=== PATIENT | male | born 1940 | race Caucasian/White ===

== ENCOUNTER 2017-01-11 10:32 | Outpatient (CLI) | payer MEDICARE, OTHER ==
--- NOTE | 2017-01-11 17:07 | XRAY Report ---
RIGHT SHOULDER THREE VIEWS: 01/11/2017 CLINICAL HISTORY: Pain. COMPARISON: None. FINDINGS: Degenerative change right acromioclavicular articulation with spurring and narrowing. Mild degenerative change of glenohumeral articulation with spurring. Soft tissue calcification adjacent t o the greater tuberosity. Anatomic alignment of the glenohumeral and acromioclavicular joints. The in cluded right lung is unremarkable. IMPRESSION: DEGENERATIVE CHANGE AND CALCIFIC TENDINITIS RIGHT SHOULDER. JOB #: [id number] EXT JOB #:[id number]
== END 2017-01-11 10:33 | disposition home or self-care (01) ==
LOC: DI.S 10:32
PROVIDERS: ATTEND Family Medicine
DX: M19.011 Primary osteoarthritis, right shoulder (principal); M75.31 Calcific tendinitis of right shoulder

== ENCOUNTER 2018-05-04 15:28 | Outpatient (CLI) | payer MEDICARE, OTHER ==
--- NOTE | 2018-05-06 01:02 | XRAY Report ---
Reason: ACUTE BRONCHITIS,UNSPECIFIED Procedure Date: 05/04/2018 Accession Number: [id number] / [id number] Procedure: XR - Chest 2 View X-Ray CPT Code: 98105 FULL RESULT: EXAM: CHEST RADIOGRAPHY EXAM DATE: 05/04/2018 03:49 PM. CLINICAL HISTORY: ACUTE BRONCHITIS,UNSPECIFIED. COMPARISON: SHOULDER 3 VIEW RT 01/11/2017 10:45 AM 09/22/2014 3:29 PM. TECHNIQUE: 2 views. FINDINGS: Lungs/Pleura: Stable interstitial prominence. Scattered nodular opacities bilaterally, new from previous. Consider chest CT to exclude an underlying pulmonary nodule. No effusion or pneumothorax. Mediastinum: Heart and mediastinal contours are unremarkable. Other: None. IMPRESSION: Stable interstitial prominence. New scattered bilateral nodular opacities. Consider chest CT for further evaluation. RADIA
== END 2018-05-04 15:29 | disposition home or self-care (01) ==
LOC: DI 15:28
PROVIDERS: ATTEND Family Medicine
DX: J20.9 Acute bronchitis, unspecified (principal); R91.8 Other nonspecific abnormal finding of lung field
CPT/HCPCS: 71046

== ENCOUNTER 2018-05-22 10:49 | Outpatient (CLI) | payer MEDICARE, OTHER ==
--- NOTE | 2018-05-22 12:09 | CT Report ---
Reason: OTHER NONSPECIFIC ABNORMAL FINDING OF LUNG FIELD Procedure Date: 05/22/2018 Accession Number: [id number] / [id number] Procedure: CT - Chest W/O CPT Code: FULL RESULT: EXAM: CT CHEST EXAM DATE: 05/22/2018 11:01 AM. CLINICAL HISTORY: Other nonspecific abnormal finding of lung field. COMPARISONS: Chest 2 view 05/04/2018 3:44 PM. TECHNIQUE: Routine helical CT imaging was performed through the chest. IV contrast: None. Reconstructions: Coronal and sagittal. In accordance with CT protocol optimization, one or more of the following dose reduction techniques were utilized for this exam: automated exposure control, adjustment of mA and/or KV based on patient size, or use of iterative reconstructive technique. FINDINGS: Lungs/Pleura: There is peripheral interstitial thickening with lower lobe predominance and scarring mostly at the lung bases where traction bronchiectasis is observed peripherally. A few scattered nodules measuring 4 mm or less are seen, for example image 18 series 4 in the right upper lobe. There is a triangular 0.7 x 0.6 cm nodule along the horizontal fissure on image 20 series 6/image 28 series 4. Similarly, a pleural-based perifissural stellate nodule in the left lower lobe is seen on image 34 series 6, 1.3 x 0.7 cm. No pleural calcifications, pleural effusion or pneumothorax. Mediastinum: Extensive coronary calcifications. No adenopathy or masses. The heart and great vessels are unremarkable with the exception of mild aortic calcifications. Bones: Unremarkable. Visualized Abdomen: Right lobe of liver cyst is noted. Other: None. IMPRESSION: Nodularities and increased interstitial markings seen on chest radiograph are identified as lower lobe predominant early fibrotic process with nodularities predominately in perifissural/peripleural locations as described. Recommendation: Pulmonology consult. RADIA
== END 2018-05-22 10:50 | disposition home or self-care (01) ==
LOC: DI 10:49
PROVIDERS: ATTEND Family Medicine
DX: R91.8 Other nonspecific abnormal finding of lung field (principal); J47.9 Bronchiectasis, uncomplicated
CPT/HCPCS: 71250

== ENCOUNTER 2019-05-16 13:57 | Outpatient (CLI) | payer MEDICARE, OTHER ==
[2019-05-16 18:45] LABS: ALBUMIN/GLOBULIN RATIO 1.1 (1.0-2.2); BILIRUBIN,TOTAL 0.6 mg/dL (0.2-1.0); CALCIUM 9.1 mg/dL (8.5-10.3); CREATININE 0.9 mg/dL (0.6-1.2); CRP - C-REACTIVE PROTEIN 2.2 mg/dL (0-1.0); TOTAL PROTEIN 7.6 g/dL (6.7-8.2)
[2019-05-18 11:28] LABS: ANA SCREEN NEGATIVE (NEGATIVE)
== END 2019-05-16 13:58 | disposition home or self-care (01) ==
LOC: LAB.S 13:57
PROVIDERS: ATTEND Nurse Practitioner Family
DX: M25.559 Pain in unspecified hip (principal)
CPT/HCPCS: 36415; 80053; 85651; 86038; 86140

== ENCOUNTER 2022-09-30 08:00 | Outpatient (CLI) | payer MEDICARE, OTHER ==
--- NOTE | 2022-09-30 15:54 | XRAY Report ---
PROCEDURE: Chest 2 View X-Ray INDICATIONS: PNEUMONIA TECHNIQUE: 2 views of the chest were acquired. COMPARISON: 05/22/2018 and 05/04/2018.. FINDINGS: Surgical changes and devices: None. Lungs and pleura: Ill-defined airspace opacities are noted in right lower lung field suggestive of sm all right lower lobe infiltrate. Chronic emphysematous changes are seen. Blunting of right costophren ic angle is noted suggestive of small right pleural effusion. No pneumothorax. Mediastinum: Mediastinal contours appear normal. Heart size is enlarged. Bones and chest wall: No suspicious bony lesions. Overlying soft tissues appear unremarkable. IMPRESSION: Finding is suggestive of small infiltrate in lateral right lower lobe near right lung base. Small rig ht pleural effusion. COPD. No pneumothorax. Reviewed by: Waldo Lenz MD on 09/30/2022 3:52 PM PDT Approved by: Waldo Lenz MD on 09/30/2022 3:52 PM PDT Station ID: [id number]
== END 2022-09-30 23:59 | disposition home or self-care (01) ==
LOC: DI.S 08:00
PROVIDERS: ATTEND Emergency Medicine
DX: J18.9 Pneumonia, unspecified organism (principal); J90 Pleural effusion, not elsewhere classified; J44.0 Chronic obstructive pulmonary disease with (acute) lower respiratory infection

== ENCOUNTER 2022-09-30 20:38 | Inpatient (IN) | payer MEDICARE, OTHER ==
--- NOTE | 2022-09-30 21:03 | ED Physician Documentation ---
History of Present Illness - Stated complaint Stated Complaint: SOA - Chief complaint Chief Complaint: Resp - Additonal information Additional information: Patient is 81-year-old male with past medical significant for pulmonary fibrosis presenting to the emergency department with 5-day history cough, fever, shortness of breath. Accompanied by who is present at bedside. Reports initially started with fever 101.2 at home 5 days ago. Reports a history of chronic cough that has been becoming progressively worse for the last 5 days. He does state that he followed with pulmonology prior to the onset of the COVID- 19 pandemic at the [facility] however has not followed up with a auto parts professional in some time. Denies any history COPD, regular use of breathing treatments, or baseline oxygen demand. Reports had some mild chest pain yesterday but denies any chest pain at this time. Otherwise denies for any nausea, vomiting, abdominal pain, diarrhea, constipation, new rash, new weakness/numbness/tingling in any extremity. Review of Systems Constitutional: reports: Fever Eyes: denies: Loss of vision Ears: denies: Loss of hearing Nose: denies: Rhinorrhea / runny nose Throat: denies: Dental pain / toothache Cardiac: reports: Chest pain / pressure Respiratory: reports: Dyspnea, Cough GI: denies: Abdominal Pain, Nausea, Constipation, Diarrhea : denies: Dysuria Skin: denies: Rash Musculoskeletal: denies: Neck pain Neurologic: denies: Generalized weakness PD PAST MEDICAL HISTORY - Past Surgical History Past Surgical History: Yes HEENT: Tonsil/Adenoidectomy - Present Medications Home Medications: Ambulatory Orders Medication Instructions Recorded Confirmed predniSONE [Prednisone] 15 mg PO DAILY 02/20/15 02/20/15 - Allergies Allergies/Adverse Reactions: Allergies Allergy/AdvReac Type Severity Reaction Status Date / Time No Known Drug Allergies Allergy Verified 09/30/22 20:51 - Social History Does the pt smoke?: No Smoking Status: Never smoker Does the pt drink ETOH?: Yes Does the pt have substance abuse?: No - Immunizations Immunizations are current?: No Immunizations: TDAP >10years/unknown PD ED PE NORMAL - General General: Alert and oriented X 3, No acute distress - HEENT HEENT: Atraumatic - Neck Neck: Supple, no meningeal sign, No JVD - Cardiac Cardiac: RRR, No murmur, No gallop - Respiratory Respiratory: Clear bilaterally - Abdomen Abdomen: Normal bowel sounds, Soft, Non tender, Non distended - Male Male : Deferred - Rectal Rectal: Deferred - Back Back: No CVA TTP - Derm Derm: Normal color - Extremities Extremities: No deformity - Neuro Neuro: Alert and oriented X 3, waist presser 2-12 intact, No motor deficit, No sensory deficit, Normal speech - Psych Psych: Normal mood Results - Vitals Vitals: Vital Signs - 24 hr 09/30/22 09/30/22 09/30/22 20:48 21:21 22:00 Temperature 37.7 C 37.4 C Heart Rate 100 97 95 Respiratory 22 26 H 26 H Rate Blood Pressure 155/82 H 149/82 H 142/84 H O2 Saturation 86 L 93 93 If not protocol 2 2 : Oxygen Flow, liters/minute 09/30/22 22:30 Temperature Heart Rate 93 Respiratory 28 H Rate Blood Pressure 138/82 H O2 Saturation 95 If not protocol 2 : Oxygen Flow, liters/minute Oxygen O2 Source Nasal cannula - EKG (time done) 2050 EKG releavant findings:: EKG personally interpreted by author of this note. Relevant findings are: Sinus rhythm with rate 98 bpm. Normal axis. Prolonged ME interval. Normal QRS and QTc intervals. Nonspecific ST and T wave abnormalities throughout. Moderate motion artifact throughout. - Labs Labs: Laboratory Tests 09/30/22 09/30/22 09/30/22 20:48 21:00 21:00 WBC 17.3 H RBC 4.08 L Hgb 12.3 L Hct 36.3 L MCV 89.0 MCH 30.1 MCHC 33.9 RDW 14.6 Plt Count 180 MPV 12.8 H Neut # (Auto) Not Reportable Lymph # (Auto) Not Reportable [place] # (Auto) Not Reportable Eos # (Auto) Not Reportable Baso # (Auto) Not Reportable Absolute Nucleated RBC Not Reportable Total Counted 100 Band Neuts % (Manual) 0 Abnorm Lymph % (Manual) 0 Nucleated RBC % Not Reportable Neutrophils # (Manual) 13.8 H Lymphocytes # (Manual) 1.0 L Monocytes # (Manual) 2.4 H Eosinophils # (Manual) 0.0 Basophils # (Manual) 0.0 Differential Comment MANUAL DIFFERENTIAL Platelet Estimate NORMAL (130-450,000) Platelet Morphology NORMAL APPEARANCE RBC Morph Micro Appear NORMAL APPEARANCE Sodium 134 L Potassium 4.0 Chloride 102 Carbon Dioxide 20 L Anion Gap 12.0 BUN 23 H Creatinine 1.4 H Estimated GFR (MDRD) 49 L Glucose 143 H Lactic Acid 0.9 Calcium 8.3 L Total Bilirubin 1.0 AST 21 ALT 19 Alkaline Phosphatase 55 Total Protein 7.6 Albumin 3.3 Globulin 4.3 H Albumin/Globulin Ratio 0.8 L Nasal Adenovirus (PCR) Nasal B. parapertussis DNA (PCR) Nasal Coronavir 229E PCR Nasal Coronavir HKU1 PCR Nasal Coronavir NL63 PCR Nasal Coronavir OC43 PCR Nasal Enterovir/Rhinovir PCR Nasal Influenza B PCR Nasal Influenza A PCR Nasal Parainfluen 1 PCR Nasal Parainfluen 2 PCR Nasal Parainfluen 3 PCR Nasal Parainfluen 4 PCR Nasal RSV (PCR) Nasal B.pertussis DNA PCR Nasal C.pneumoniae (PCR) Jose Rafael Human Metapneumo PCR Nasal M.pneumoniae (PCR) Nasal SARS-CoV-2 (PCR) 09/30/22 21:00 WBC RBC Hgb Hct MCV MCH MCHC RDW Plt Count MPV Neut # (Auto) Lymph # (Auto) [place] # (Auto) Eos # (Auto) Baso # (Auto) Absolute Nucleated RBC Total Counted Band Neuts % (Manual) Abnorm Lymph % (Manual) Nucleated RBC % Neutrophils # (Manual) Lymphocytes # (Manual) Monocytes # (Manual) Eosinophils # (Manual) Basophils # (Manual) Differential Comment Platelet Estimate Platelet Morphology RBC Morph Micro Appear Sodium Potassium Chloride Carbon Dioxide Anion Gap BUN Creatinine Estimated GFR (MDRD) Glucose Lactic Acid Calcium Total Bilirubin AST ALT Alkaline Phosphatase Total Protein Albumin Globulin Albumin/Globulin Ratio Nasal Adenovirus (PCR) NOT DETECTED Nasal B. parapertussis DNA (PCR) NOT DETECTED Nasal Coronavir 229E PCR NOT DETECTED Nasal Coronavir HKU1 PCR NOT DETECTED Nasal Coronavir NL63 PCR NOT DETECTED Nasal Coronavir OC43 PCR NOT DETECTED Nasal Enterovir/Rhinovir PCR NOT DETECTED Nasal Influenza B PCR NOT DETECTED Nasal Influenza A PCR NOT DETECTED Nasal Parainfluen 1 PCR NOT DETECTED Nasal Parainfluen 2 PCR NOT DETECTED Nasal Parainfluen 3 PCR NOT DETECTED Nasal Parainfluen 4 PCR NOT DETECTED Nasal RSV (PCR) NOT DETECTED Nasal B.pertussis DNA PCR NOT DETECTED Nasal C.pneumoniae (PCR) NOT DETECTED Jose Rafael Human Metapneumo PCR NOT DETECTED Nasal M.pneumoniae (PCR) NOT DETECTED Nasal SARS-CoV-2 (PCR) NOT DETECTED PD Medical Decision Making - ED course Complexity details: reviewed results, re-evaluated patient, d/w patient, d/w family ED course: Patient is 81-year-old male presenting to the emergency department with 5 days history cough, congestion, shortness of breath and fever. Earlier today seen at primary care and had x-ray done which demonstrated Impression: Finding is suggestive of a small infiltrate in the lateral right lower lobe near the lung base. Small right pleural effusion. COPD. No pneumothorax. On arrival here to the emergency department he has clear aeration in all lung childers without wheeze or bronchospasm. Labs demonstrate significant leukocytosis. He also has a mild elevation in creatinine without previous for comparison however this would be consistent with a mild acute kidney injury. He is given IV hydration and started on Rocephin and Azithromycinfor community- acquired pneumonia. He remains dependent on 2 L O2 to maintain oxygen saturations of greater than 90% in the emergency department. Given that he has clear need for hospitalization his care was discussed with the telehospitalist service who graciously agreed to hospitalize at this time for further evaluation and treatment. Departure - Departure Disposition: 66 [facility] DC/Xfer Clinical Impression: PNA (pneumonia), Respiratory failure
[2022-09-30] MEDS ORDERED: AZITHROMYCIN INJ 500 MG in SODIUM CHLORIDE 0.9% 250 ML IV STA (21:06)
[2022-09-30] MEDS ORDERED: cefTRIAXone 1 GM in SODIUM CHLORIDE 0.9% MINIBAG 100 ML IV STA (21:06)
[2022-09-30] MEDS ORDERED: cefTRIAXone 1 GM VIAL ONE (21:22)
[2022-09-30 21:31] LABS: BASOPHILS % (AUTO) 0.3 %; EOSINOPHILS % (AUTO) 0.2 %; HCT - HEMATOCRIT 36.3 % (42.0-52.0); HGB - HEMOGLOBIN 12.3 g/dL (14.0-18.0); LYMPHOCYTES % (AUTO) 8.5 %; MEAN CORPUSCULAR HEMOGLOBIN 30.1 pg (27.0-31.0); MEAN CORPUSCULAR HGB CONC 33.9 g/dL (32.0-36.0); MEAN PLATELET VOLUME 12.8 fL (7.4-11.4); MONOCYTES % (AUTO) 15.8 %; NEUTROPHILS % (AUTO) 74.7 %; PLT - PLATELET COUNT 180 10^3/uL (130-450); RED BLOOD COUNT 4.08 10^6/uL (4.70-6.10); RED CELL DISTRIBUTION WIDTH 14.6 % (12.0-15.0); WHITE BLOOD COUNT 17.3 x10^3/uL (4.8-10.8)
[2022-09-30 21:35] LABS: ALBUMIN 3.3 g/dL (3.2-5.5); ALBUMIN/GLOBULIN RATIO 0.8 (1.0-2.2); CALCIUM 8.3 mg/dL (8.5-10.3); CREATININE 1.4 mg/dL (0.6-1.2); TOTAL PROTEIN 7.6 g/dL (6.7-8.2)
[2022-09-30 21:37] LABS: ABNORMAL LYMPHS % (MANUAL) 0 %; BAND NEUTROPHILS % (MANUAL) 0 %
--- OUTSIDE RECORDS SUMMARY | 2022-09-30 21:38 | EXTERNAL MEDICAL SUMMARY RPT | Continuity of Care Document ---
Author Name Unknown Address [address] [place] [address] Phone Organization [facility] Address [address] [place] [address] Phone Care Team Providers Care Head Buyer Tobacco Name Role Phone Unavailable Unavailable Unavailable Ricardo Plasencia Md Unavailable Unavailable Medications date description facility 2022-09-30 00:00 codeine-guaifenesin [facility] 2022-09-30 00:00 doxycycline hyclate [facility] 2022-09-30 00:00 famotidine [facility] 2022-09-30 00:00 azithromycin [facility] 2022-09-30 00:00 doxycycline hyclate [facility] 2022-09-30 00:00 codeine-guaifenesin [facility] 2022-09-30 00:00 doxycycline hyclate [facility] 2022-09-30 00:00 famotidine [facility] 2022-09-30 00:00 azithromycin [facility] 2022-09-30 00:00 famotidine [facility] 2022-09-30 00:00 codeine-guaifenesin [facility] 2022-09-30 00:00 albuterol sulfate [facility] 2022-09-30 00:00 albuterol sulfate [facility] 2022-09-30 00:00 famotidine [facility] 2022-09-30 00:00 azithromycin [facility] [place] 2022-09-30 00:00 azithromycin [facility] [place] 2022-09-30 00:00 ALBUTEROL SULFATE [facility] [place] 2022-09-30 00:00 albuterol sulfate [facility] [place] 2022-09-30 00:00 doxycycline hyclate [facility] [place] 2022-09-30 00:00 albuterol sulfate [facility] [place] 2022-09-30 00:00 codeine-guaifenesin [facility] [place] 2022-09-30 00:00 inhalational spacing device [facility] [place] Problems date description facility 2022-09-30 00:00 Community acquired pneumonia [facility] [place] 2022-09-30 00:00 Pneumonia, unspecified organism [facility] [place] Procedures date description facility 2022-09-30 00:00 Visit Code Hold [facility] [place] 2022-09-30 00:00 Albuterol 0.083% 2.5mg/3ml [facility] [place] Social History date description facility 2022-09-30 00:00 Never smoker [facility] [place] Vital Signs date measurement value units 2022-09-30 00:00 BMI 25.11 kg/m2 2022-09-30 00:00 BP_diastolic 72 mmHg 2022-09-30 00:00 BP_systolic 117 mmHg 2022-09-30 00:00 heart_rate 100 /min 2022-09-30 00:00 height_metric 167.64 cm 2022-09-30 00:00 height_standard 66 in 2022-09-30 00:00 respiration_rate 18 /min 2022-09-30 00:00 temperature_metric 36.89 C 2022-09-30 00:00 temperature_standard 98.4 F 2022-09-30 00:00 weight_metric 70.31 kg 2022-09-30 00:00 weight_standard 155 lb
[2022-09-30 21:55] LABS: LYMPHOCYTES % (MANUAL) 6 %; MONOCYTES # (MANUAL) 2.4 10^3/uL (0.0-1.0); NEUTROPHILS # (MANUAL) 13.8 10^3/uL (1.5-6.6)
[2022-09-30 21:56] LABS: CORONAVIRUS 229E-RESP PCR NOT DETECTED; CORONAVIRUS HKU1-RESP PCR NOT DETECTED; CORONAVIRUS NL63-RESP PCR NOT DETECTED; CORONAVIRUS OC43-RESP PCR NOT DETECTED; HUMAN METAPNEUMOVIRUS NOT DETECTED; INFLUENZA A- RESP PCR PANEL NOT DETECTED; RHINOVIRUS/ENTEROVIRUS NOT DETECTED; SARS-CoV-2 -RESP PCR PANEL NOT DETECTED
[2022-09-30 21:56] LABS: DIFFERENTIAL COMMENT MANUAL DIFFERENTIAL; PLATELET ESTIMATE, MANUAL NORMAL (130-450,000) (NORMAL); PLATELET MORPHOLOGY NORMAL APPEARANCE (NORMAL); RBC MORPHOLOGY (MULTIPLE) NORMAL APPEARANCE (NORMAL)
[2022-09-30 21:57] LABS: B. PARAPERTUSSIS- RESP PCR PAN NOT DETECTED; B. PERTUSSIS- RESP PCR PANEL NOT DETECTED; C. PNEUMONIAE- RESP PCR PANEL NOT DETECTED; INFLUENZA B - RESP PCR PANEL NOT DETECTED; M. PNEUMONIAE- RESP PCR PANEL NOT DETECTED; PARAINFLUENZA VIRUS 1 NOT DETECTED; PARAINFLUENZA VIRUS 2 NOT DETECTED; PARAINFLUENZA VIRUS 3 NOT DETECTED; PARAINFLUENZA VIRUS 4 NOT DETECTED; RSV- RESP PCR PANEL NOT DETECTED
[2022-09-30 23:15] LABS: BILIRUBIN,URINE NEGATIVE (NEGATIVE); GLUCOSE, URINE (UA) NEGATIVE (NEGATIVE); KETONES,URINE (UA) TRACE mg/dL (NEGATIVE); LEUKOCYTE ESTERASE, URINE NEGATIVE (NEGATIVE); NITRITE,URINE NEGATIVE (NEGATIVE); OCCULT BLOOD,URINE NEGATIVE (NEGATIVE); PH,URINE 5.5 PH (5.0-7.5); PROTEIN,URINE 30 mg/dL (NEGATIVE); UROBILINOGEN,URINE 1 (NORMAL) E.U./dL (NORMAL)
[2022-09-30 23:24] LABS: BACTERIA,URINE Rare /HPF (None Seen); CLARITY,URINE CLEAR (CLEAR); MUCUS,URINE Few Strands; RBC,URINE 0-5 /HPF (0-5); SQUAMOUS EPITHELIAL CELL,UR RARE Squamous (<= Few); WBC,URINE 0-3 /HPF (0-3)
[2022-10-01] MEDS ORDERED: oxyCODONE 5 MG TABLET PO PRN (00:17)
[2022-10-01] MEDS ORDERED: ZOLPIDEM 5 MG TABLET PO PRN (00:17)
[2022-10-01] MEDS ORDERED: ONDANSETRON 4 MG/2 ML VIAL IVP PRN (00:17)
[2022-10-01] MEDS ORDERED: ACETAMINOPHEN 325 MG TABLET PO PRN (00:17)
[2022-10-01] MEDS ORDERED: guaiFENesin 100 MG/5 ML UDC PO STA (00:20)
[2022-10-01] MEDS ORDERED: predniSONE 20 MG TABLET PO STA (00:23)
--- NOTE | 2022-10-01 00:28 | HISTORY & PHYSICAL EXAMINATION ---
Chief Complaint - Chief Complaint Chief Complaint: Worsening cough and sob History of Present Illness - Admitted From Admitted From:: Home - History Obtained From Records Reviewed: Yes History obtained from: Patient and ER Team Exam Limitations: None - History of Present Illness HPI Comment/Other: Patient is 81-year-old male with past medical significant for pulmonary fibrosis presenting to the emergency department with 5-day history cough, fever, shortness of breath. Accompanied by who is present at bedside. Reports initially started with fever 101.2 at home 5 days ago. Reports a history of chronic cough that has been becoming progressively worse for the last 5 days. He does state that he followed with pulmonology prior to the onset of the COVID- 19 pandemic at the [facility] however has not followed up with a brush finisher in some time. Denies any history COPD, regular use of breathing treatments, or baseline oxygen demand. Reports had some mild chest pain yesterday but denies any chest pain at this time. Otherwise denies for any nausea, vomiting, abdominal pain, diarrhea, constipation, new rash, new weakness/numbness/tingling in any extremity. 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 He did look comfortable History - Past Medical History MRSA Hx?: No - Past Surgical History HEENT: reports: Tonsil/Adenoidectomy Meds/Allgy - Home Medications Home Medications: Ambulatory Orders Medication Instructions Recorded Confirmed predniSONE [Prednisone] 15 mg PO DAILY 02/20/15 02/20/15 - Allergies Allergies/Adverse Reactions: Allergies Allergy/AdvReac Type Severity Reaction Status Date / Time No Known Drug Allergies Allergy Verified 09/30/22 20:51 Review of Systems - Respiratory Respiratory: reports: Cough, Sputum production, SOB with exertion Prior Level of Functionality: Independent with ADL Exam - Vital Signs Vital Signs: Vital Signs x48h Temp Pulse Resp BP Pulse Ox O2 Flow Rate 09/30/22 23:30 89 27 H 129/78 92 2 09/30/22 23:15 94 2 09/30/22 23:00 87 L 09/30/22 22:30 93 28 H 138/82 H 95 2 09/30/22 22:00 37.4 C 95 26 H 142/84 H 93 2 09/30/22 21:21 97 26 H 149/82 H 93 2 09/30/22 20:48 37.7 C 100 22 155/82 H 86 L - Physical Exam General Appearance: positive: No acute distress, Alert Eyes Bilateral: positive: Normal inspection, PERRL ENT: positive: ENT inspection nml Neck: positive: Nml inspection, Thyroid nml Respiratory: positive: Chest non-tender, No respiratory distress, Rhonchi Cardiovascular: positive: Regular rate & rhythm Abdomen: positive: Non-tender, No organomegaly Back: positive: Nml inspection Skin: positive: Color nml, No rash Extremities: positive: Non-tender, Full ROM Neurologic/Psychiatric: positive: Oriented x3, CN's nml (2-12) Sepsis Event Note (H) - Evaluation Current Stage of Sepsis: Ruled out Conclusion/Plan - Problem List (1) PNA (pneumonia) Conclusion/Plan: Admit to Med surg Treat for CAP IV Rocephin and Zithromax Sputum Cand S duonebs Prednisone Repeat Labs in am SCD Early dc anticipated if continues to improve Patient was informed that we are both in different location and I was providing him service on telemedicine He agreed to our encounter He understands he will be followed by my colleagues starting tomorrow am and they will be seeing him in person Qualifiers: Pneumonia type: due to unspecified organism Laterality: right Lung location: unspecified part of lung Qualified Code(s): J18.9 - Pneumonia, unspecified organism - Lab Results Fish Bones: 09/30/22 20:48 09/30/22 21:00
[2022-10-01] MEDS ORDERED: SODIUM CHLORIDE 0.9% 1,000 ML IV SCH (01:00)
[2022-10-01] MEDS: SODIUM CHLORIDE FLUSH 0.9% 10 ML SYRINGE IVP SCH ×4 (01:19→23:38)
[2022-10-01] MEDS ORDERED: IPRATROPIUM/ALBUTEROL 3 ML NEB INH SCH (06:00)
[2022-10-01 08:46] LABS: BASOPHILS % (AUTO) 0.2 %; HGB - HEMOGLOBIN 12.6 g/dL (14.0-18.0); LYMPHOCYTES # (AUTO) 0.7 10^3/uL (1.5-3.5); LYMPHOCYTES % (AUTO) 5.6 %; MEAN CORPUSCULAR HEMOGLOBIN 29.9 pg (27.0-31.0); MEAN CORPUSCULAR HGB CONC 34.1 g/dL (32.0-36.0); MEAN CORPUSCULAR VOLUME 87.7 fL (80.0-94.0); MEAN PLATELET VOLUME 9.8 fL (7.4-11.4); MONOCYTES # (AUTO) 0.6 10^3/uL (0.0-1.0); MONOCYTES % (AUTO) 4.4 %; NEUTROPHILS # (AUTO) 11.7 10^3/uL (1.5-6.6); NEUTROPHILS % (AUTO) 89.2 %; PLT - PLATELET COUNT 360 10^3/uL (130-450); RED BLOOD COUNT 4.22 10^6/uL (4.70-6.10); RED CELL DISTRIBUTION WIDTH 14.6 % (12.0-15.0); WHITE BLOOD COUNT 13.1 x10^3/uL (4.8-10.8)
[2022-10-01 08:55] LABS: BUN - BLOOD UREA NITROGEN 22 mg/dL (6-20); CALCIUM 8.5 mg/dL (8.5-10.3); CARBON DIOXIDE - CO2 20 mmol/L (21-32); CHLORIDE 107 mmol/L (101-111); CREATININE 1.3 mg/dL (0.6-1.2); GFR - MDRD 53 (>89); GLUCOSE 147 mg/dL (70-100); IONIZED CALCIUM IF INDICATED NO; SODIUM 138 mmol/L (135-145)
[2022-10-01] MEDS: guaiFENesin 600 MG TABLET PO SCH ×2 (09:05→20:38)
--- NOTE | 2022-10-01 12:21 | PHARMACY PROGRESS NOTE ---
- Best Possible Medication History Admit Date and Time: 10/01/22 0017 Processed by: Pharmacy Medication History completed: Yes Patient Interview: Completed Secondary Source(s): Pharmacy records, Insurance records As the person ultimately responsible for medication therapy, providers are able to order a medication from an existing home medication list in [facility] via the "Reconcile Routine" prior to Confirmation of that medication by end user support specialist. Such practice is discouraged except when the physician, in their clinical judgment, deems that a medical need exists for a medication without regard to previous use.
[2022-10-01] MEDS: cefTRIAXone 1 GM in SODIUM CHLORIDE 0.9% MINIBAG 100 ML IV SCH (20:38)
[2022-10-01] MEDS ORDERED: AZITHROMYCIN INJ 500 MG in SODIUM CHLORIDE 0.9% 250 ML IV SCH (21:00)
[2022-10-02 05:11] LABS: BASOPHILS % (AUTO) 0.2 %; EOSINOPHILS % (AUTO) 0.2 %; HGB - HEMOGLOBIN 12.9 g/dL (14.0-18.0); LYMPHOCYTES % (AUTO) 9.5 %; MEAN CORPUSCULAR HEMOGLOBIN 29.9 pg (27.0-31.0); MEAN CORPUSCULAR HGB CONC 33.9 g/dL (32.0-36.0); MEAN PLATELET VOLUME 11.5 fL (7.4-11.4); NEUTROPHILS % (AUTO) 76.5 %; PLT - PLATELET COUNT 325 10^3/uL (130-450); RED BLOOD COUNT 4.32 10^6/uL (4.70-6.10); RED CELL DISTRIBUTION WIDTH 14.6 % (12.0-15.0); WHITE BLOOD COUNT 16.2 x10^3/uL (4.8-10.8)
[2022-10-02 05:21] LABS: BUN - BLOOD UREA NITROGEN 27 mg/dL (6-20); CALCIUM 8.7 mg/dL (8.5-10.3); CARBON DIOXIDE - CO2 22 mmol/L (21-32); CHLORIDE 108 mmol/L (101-111); CREATININE 1.2 mg/dL (0.6-1.2); GFR - MDRD 58 (>89); GLUCOSE 135 mg/dL (70-100); IONIZED CALCIUM IF INDICATED NO; POTASSIUM 3.7 mmol/L (3.5-5.0); SODIUM 141 mmol/L (135-145)
[2022-10-02 05:23] LABS: ABNORMAL LYMPHS % (MANUAL) 0 %
[2022-10-02 06:21] LABS: BAND NEUTROPHILS % (MANUAL) 7 %; DIFFERENTIAL COMMENT MANUAL DIFFERENTIAL; EOSINOPHILS # (MANUAL) 0.2 10^3/uL (0-0.7); LYMPHOCYTES # (MANUAL) 1.6 10^3/uL (1.5-3.5); LYMPHOCYTES % (MANUAL) 10 %; MONOCYTES # (MANUAL) 1.6 10^3/uL (0.0-1.0); NEUTROPHILS # (MANUAL) 12.8 10^3/uL (1.5-6.6); PLATELET ESTIMATE, MANUAL NORMAL (130-450,000) (NORMAL); RBC MORPHOLOGY (MULTIPLE) NORMAL APPEARANCE (NORMAL)
[2022-10-02] MEDS: guaiFENesin 600 MG TABLET PO SCH ×2 (08:52→21:09)
[2022-10-02] MEDS: SODIUM CHLORIDE FLUSH 0.9% 10 ML SYRINGE IVP SCH ×2 (08:52→21:09)
--- NOTE | 2022-10-02 13:24 | CT Report ---
PROCEDURE: CT brain without contrast, stroke protocol INDICATIONS: altered mental status TECHNIQUE: Noncontrast 4.5 mm thick angled axial sections acquired from the foramen magnum to the vertex, with c oronal reformats. For radiation dose reduction, the following was used: automated exposure control, adjustment of mA and/or kV according to patient size. COMPARISON: None. FINDINGS: Image quality: Excellent. CSF spaces: Basal cisterns are patent. No extra-axial fluid collections. Ventricles are normal in size and shape. Brain: No midline shift. No intracranial masses or hemorrhage. Jain-white matter interface is norm al. Moderate atrophy and multifocal white matter chronic ischemic change noted. Atherosclerotic vascu lar calcification noted in the cavernous segments of both internal carotid arteries as well as the in tradural vertebral arteries. Skull and face: Calvarium and visualized facial bones are intact, without suspicious lesions. Sinuses: Visualized sinuses and mastoids are clear. IMPRESSION: Atrophy and chronic ischemic change without intracranial hemorrhage or mass effect. 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 Note: Critical results were discussed with patient's nurse on the floor, Cindy, at 12:22 PM YESENIA mares on 10/02/2022 Reviewed by: Sarwat Sanchez MD on 10/02/2022 12:23 PM MIRZA Approved by: Sarwat Sanchez MD on 10/02/2022 12:23 PM MIRZA Station ID: [id number]
[2022-10-02] MEDS: SODIUM CHLORIDE 0.65% NASAL SPRAY NAS PRN (13:27)
[2022-10-02 13:36] LABS: ABG HCO3 23.5 mmol/L (22.0-26.0); ABG PCO2 32 mmHg (34-45); ABG PH 7.49 (7.35-7.45)
[2022-10-02 13:37] LABS: ABG BASE EXCESS 0.8 mmol/L (-2.0-3.0); ABG OXYGEN SATURATION 89 % (94-98); ABG TCO2 24.4 MMOL/L (21.0-29.0); ALLEN TEST POSITIVE
[2022-10-02 13:42] LABS: ABG PO2 55 mmHg (80-100)
[2022-10-02] MEDS ORDERED: iohexoL-300 100 ML VIAL ONE (14:02)
--- NOTE | 2022-10-02 14:49 | CT Report ---
PROCEDURE: CT brain without contrast INDICATIONS: Altered mental status CONTRAST: 100ml omni 300 TECHNIQUE: 4.5 mm thick angled axial sections acquired from the foramen magnum to the vertex after the administr ation of intravenous contrast. For radiation dose reduction, the following was used: automated expo sure control, adjustment of mA and/or kV according to patient size. COMPARISON: Noncontrast head CT 10/02/2022 FINDINGS: Image quality: Excellent. CSF Spaces: Basal cisterns are patent. No extra-axial fluid collections. Ventricles are normal in size and shape. Brain: No midline shift. No intracranial bleeds or masses. No abnormal intracranial enhancement. Jain-white interface appears normal. Moderate atrophy and multifocal white matter chronic ischemic c hange noted. Atherosclerotic vascular calcification noted in the cavernous segments of both internal carotid arteries as well as the intradural vertebral arteries. 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 Sinuses: Visualized sinuses and mastoids are clear. IMPRESSION: Atrophy and chronic ischemic change without intracranial hemorrhage or abnormal enhancement. 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
[2022-10-02] MEDS ORDERED: iohexoL-300 100 ML VIAL IVP ONE (14:56)
--- NOTE | 2022-10-02 15:13 | PROVIDER PROGRESS NOTE ---
Assessment/Plan - Problem List (1) Community acquired pneumonia Qualifiers: Laterality: right Lung location: lower lobe of lung Qualified Code(s): J18.9 - Pneumonia, unspecified organism Assessment/Plan: Sputum culture Gram stain shows many WBCs along with gram-positive cocci no other identification is currently available. Patient is continuing to be on IV Rocephin and IV azithromycin. (2) Acute encephalopathy Assessment/Plan: Generalized confusion suspect secondary to infectious process. CT of head without contrast revealed no acute abnormalities -Check MRI of brain but there are no focal findings suggesting CVA. (3) Acute respiratory failure with hypoxia Assessment/Plan: Secondary to community-acquired pneumonia in a patient with pulmonary fibrosis. He usually is not on home O2. ABG done today verify that he was hypoxic requiring continuing O2 supplementation by nasal cannula although he take it off often. Other findings on ABG show he does not have hypercapnia. (4) Pulmonary fibrosis Assessment/Plan: Does see an outpatient solar system designer for this but has been stable per his report (5) Sepsis Qualifiers: Acute respiratory failure type: with hypoxia Severe sepsis shock status: without septic shock Assessment/Plan: Secondary to community-acquired pneumonia -Meets criteria with tachycardia increased respiratory rate leukocytosis - Current Meds Current Meds: Current Medications Generic Name Dose Route Start Last Admin Trade Name Freq PRN Reason Stop Dose Admin Guaifenesin 1,200 mg 10/01/22 09:00 10/02/22 08:52 Guaifenesin 600 Mg Tablet PO 1,200 mg BID TEN Administration Ceftriaxone Sodium 1 gm/ 100 mls @ 200 mls/hr 10/01/22 21:00 10/01/22 21:13 Sodium Chloride IV Infused 2100 TEN Infusion Sodium Chloride 10 ml 10/01/22 01:00 10/02/22 08:52 Sodium Chloride Flush 0.9% 10 Ml Syringe IVP 10 ml 0100,0900,1700 TEN Administration Sodium Chloride 2 sprays 10/02/22 12:01 10/02/22 13:27 Sodium Chloride 0.65% Nasal [place] SOL 1 spr Q4HR PRN Administration Nasal Congestion - Lab Result Fish Bone Diagrams: 10/02/22 04:45 10/02/22 04:45 - Diagnostic Imaging Results Diagnostic Imaging Results: Final report reviewed - Additional Planning My Orders: My Active Orders 10/01/22 16:50 CUL, RESPIRATORY [RM] Routine 10/02/22 12:01 Sodium Chloride 0.65% [[place] [employer]] 2 sprays SOL Q4HR PRN 10/02/22 12:54 RT - Obtain Arterial Specimen [RC] .ONCE 10/02/22 13:46 Blood Glucose POC [RC] .ONCE 10/02/22 14:00 Heparin [Heparin Sodium (Porcine)] 5,000 unit SUBQ BID 10/02/22 15:08 BRAIN WO [MRI] Routine 10/03/22 05:00 BMP, RFLX TO IONIZED CA IF [CHEM] DAILYLAB CBC - COMP BLD CT W/AUTO DIFF [HEME] DAILYLAB 10/04/22 05:00 BMP, RFLX TO IONIZED CA IF [CHEM] DAILYLAB CBC - COMP BLD CT W/AUTO DIFF [HEME] DAILYLAB 10/05/22 05:00 BMP, RFLX TO IONIZED CA IF [CHEM] DAILYLAB CBC - COMP BLD CT W/AUTO DIFF [HEME] DAILYLAB 10/06/22 05:00 CBC - COMP BLD CT W/AUTO DIFF [HEME] DAILYLAB Subjective - Subjective Patient Reports: Other (Patient more confused today and this was corroborated with patient's at bedside. He was a little bit cantankerous yesterday. He has not been taking any narcotics per nursing here. Glucose was normal. He did not have any focal deficits.Spoke with charge nurse this afternoon who is charge [facility]) Objective Vital Signs: Vital Signs - 24 hr 10/01/22 10/01/22 10/01/22 17:10 21:17 23:10 Temperature Heart Rate [ 103 H Radial] Respiratory Rate Blood Pressure 162/77 H [Left Brachial artery] Blood Pressure [Right Brachial artery] O2 Saturation 96 If not protocol 2 2 : Oxygen Flow, liters/minute 10/01/22 10/02/22 23:38 08:00 Temperature 37.4 C 36.7 C Heart Rate [ 100 96 Radial] Respiratory 18 18 Rate Blood Pressure 144/67 H [Left Brachial artery] Blood Pressure 139/77 H [Right Brachial artery] O2 Saturation 93 92 If not protocol 2 2 : Oxygen Flow, liters/minute Oxygen O2 Source Nasal cannula I&O (Last 24 Hrs): Intake and Output Totals x24h 09/30/22 10/01/22 10/02/22 23:59 23:59 23:59 Intake Total 350 2521.5 770 Output Total 1150 1 Balance 350 1371.5 769 General: Alert, Other (Some confusion although was oriented x3 when asked questions) HEENT: Atraumatic Neck: Supple Neuro: Alert, Non Focal, Other (Increased confusion today) Cardiovascular: Regular rate, Normal S1, Normal S2 Respiratory: Rhonchi Abdomen: Normal bowel sounds, Soft Skin: No rashes - Results Results: Laboratory Results WBC 16.2 x10^3/uL (4.8-10.8) H 10/02/22 04:45 RBC 4.32 10^6/uL (4.70-6.10) L 10/02/22 04:45 Hgb 12.9 g/dL (14.0-18.0) L 10/02/22 04:45 Hct 38.0 % (42.0-52.0) L 10/02/22 04:45 MCV 88.0 fL (80.0-94.0) 10/02/22 04:45 MCH 29.9 pg (27.0-31.0) 10/02/22 04:45 MCHC 33.9 g/dL (32.0-36.0) 10/02/22 04:45 RDW 14.6 % (12.0-15.0) 10/02/22 04:45 Plt Count 325 10^3/uL (130-450) 10/02/22 04:45 MPV 11.5 fL (7.4-11.4) H 10/02/22 04:45 Neut # (Auto) Not Reportable 10/02/22 04:45 Lymph # (Auto) Not Reportable 10/02/22 04:45 [place] # (Auto) Not Reportable 10/02/22 04:45 Eos # (Auto) Not Reportable 10/02/22 04:45 Baso # (Auto) Not Reportable 10/02/22 04:45 Absolute Nucleated RBC Not Reportable 10/02/22 04:45 Total Counted 100 10/02/22 04:45 Band Neuts % (Manual) 7 % (0-10) 10/02/22 04:45 Abnorm Lymph % (Manual) 0 % 10/02/22 04:45 Nucleated RBC % Not Reportable 10/02/22 04:45 Neutrophils # (Manual) 12.8 10^3/uL (1.5-6.6) H 10/02/22 04:45 Lymphocytes # (Manual) 1.6 10^3/uL (1.5-3.5) 10/02/22 04:45 Monocytes # (Manual) 1.6 10^3/uL (0.0-1.0) H 10/02/22 04:45 Eosinophils # (Manual) 0.2 10^3/uL (0-0.7) 10/02/22 04:45 Basophils # (Manual) 0.0 10^3/uL (0-0.1) 10/02/22 04:45 Differential Comment MANUAL DIFFERENTIAL 10/02/22 04:45 Platelet Estimate NORMAL (130-450,000) (NORMAL) 10/02/22 04:45 Platelet Morphology NORMAL APPEARANCE (NORMAL) 09/30/22 20:48 RBC Morph Micro Appear NORMAL APPEARANCE (NORMAL) 10/02/22 04:45 Bld Gas Analysis Time 1334 10/02/22 13:20 Sample Site RIGHT RADIAL 10/02/22 13:20 ABG pH 7.49 (7.35-7.45) H 10/02/22 13:20 ABG pCO2 32 mmHg (34-45) L 10/02/22 13:20 ABG pO2 55 mmHg (80-100) L* 10/02/22 13:20 ABG HCO3 23.5 mmol/L (22.0-26.0) 10/02/22 13:20 ABG Total CO2 24.4 MMOL/L (21.0-29.0) 10/02/22 13:20 ABG O2 Saturation 89 % (94-98) L 10/02/22 13:20 ABG Base Excess 0.8 mmol/L (-2.0-3.0) 10/02/22 13:20 Tonio Test POSITIVE 10/02/22 13:20 O2 Delivery Device NASAL CANNULA 10/02/22 13:20 O2 Liters/Min 2.00 LPM 10/02/22 13:20 Sodium 141 mmol/L (135-145) 10/02/22 04:45 Potassium 3.7 mmol/L (3.5-5.0) 10/02/22 04:45 Chloride 108 mmol/L (101-111) 10/02/22 04:45 Carbon Dioxide 22 mmol/L (21-32) 10/02/22 04:45 Anion Gap 11.0 (6-13) 10/02/22 04:45 BUN 27 mg/dL (6-20) H 10/02/22 04:45 Creatinine 1.2 mg/dL (0.6-1.2) 10/02/22 04:45 Estimated GFR (MDRD) 58 (>89) L 10/02/22 04:45 Glucose 135 mg/dL (70-100) H 10/02/22 04:45 POC Whole Bld Glucose 158 mg/dL (70 - 100) H 10/02/22 13:55 Lactic Acid 0.9 mmol/L (0.5-2.2) 09/30/22 21:00 Calcium 8.7 mg/dL (8.5-10.3) 10/02/22 04:45 Ionized Calcium NO 10/02/22 04:45 Total Bilirubin 1.0 mg/dL (0.2-1.0) 09/30/22 21:00 AST 21 IU/L (10-42) 09/30/22 21:00 ALT 19 IU/L (10-60) 09/30/22 21:00 Alkaline Phosphatase 55 IU/L (42-121) 09/30/22 21:00 Total Protein 7.6 g/dL (6.7-8.2) 09/30/22 21:00 Albumin 3.3 g/dL (3.2-5.5) 09/30/22 21:00 Globulin 4.3 g/dL (2.1-4.2) H 09/30/22 21:00 Albumin/Globulin Ratio 0.8 (1.0-2.2) L 09/30/22 21:00 Urine Color YELLOW 09/30/22 23:07 Urine Clarity CLEAR (CLEAR) 09/30/22 23:07 Urine pH 5.5 PH (5.0-7.5) 09/30/22 23:07 Ur Specific [place] 1.020 (1.002-1.030) 09/30/22 23:07 Urine Protein 30 mg/dL (NEGATIVE) H 09/30/22 23:07 Urine Glucose (UA) NEGATIVE mg/dL (NEGATIVE) 09/30/22 23:07 Urine Ketones TRACE mg/dL (NEGATIVE) 09/30/22 23:07 Urine Occult Blood NEGATIVE (NEGATIVE) 09/30/22 23:07 Urine Nitrite NEGATIVE (NEGATIVE) 09/30/22 23:07 Urine Bilirubin NEGATIVE (NEGATIVE) 09/30/22 23:07 Urine Urobilinogen 1 (NORMAL) E.U./dL (NORMAL) 09/30/22 23:07 Ur Leukocyte Esterase NEGATIVE (NEGATIVE) 09/30/22 23:07 Urine RBC 0-5 /HPF (0-5) 09/30/22 23:07 Urine WBC 0-3 /HPF (0-3) 09/30/22 23:07 Ur Squamous Epith Cells RARE Squamous (<= Few) 09/30/22 23:07 Urine Bacteria Rare /HPF (None Seen) 09/30/22 23:07 Urine Mucus Few Strands 09/30/22 23:07 Urine Culture Comments NOT INDICATED 09/30/22 23:07 Nasal Adenovirus (PCR) NOT DETECTED 09/30/22 21:00 Nasal B. parapertussis DNA (PCR) NOT DETECTED 09/30/22 21:00 Nasal Coronavir 229E PCR NOT DETECTED 09/30/22 21:00 Nasal Coronavir HKU1 PCR NOT DETECTED 09/30/22 21:00 Nasal Coronavir NL63 PCR NOT DETECTED 09/30/22 21:00 Nasal Coronavir OC43 PCR NOT DETECTED 09/30/22 21:00 Nasal Enterovir/Rhinovir PCR NOT DETECTED 09/30/22 21:00 Nasal Influenza B PCR NOT DETECTED 09/30/22 21:00 Nasal Influenza A PCR NOT DETECTED 09/30/22 21:00 Nasal Parainfluen 1 PCR NOT DETECTED 09/30/22 21:00 Nasal Parainfluen 2 PCR NOT DETECTED 09/30/22 21:00 Nasal Parainfluen 3 PCR NOT DETECTED 09/30/22 21:00 Nasal Parainfluen 4 PCR NOT DETECTED 09/30/22 21:00 Nasal RSV (PCR) NOT DETECTED 09/30/22 21:00 Nasal B.pertussis DNA PCR NOT DETECTED 09/30/22 21:00 Nasal C.pneumoniae (PCR) NOT DETECTED 09/30/22 21:00 Sol Human Metapneumo PCR NOT DETECTED 09/30/22 21:00 Nasal M.pneumoniae (PCR) NOT DETECTED 09/30/22 21:00 Nasal SARS-CoV-2 (PCR) NOT DETECTED 09/30/22 21:00 Sepsis Event Note (H) - Evaluation Current Stage of Sepsis: Sepsis Possible source of Sepsis: positive: Pulmonary - Sepsis Criteria Sepsis Criteria: Recorded Heart Rate greater than 90 bpm, Recorded Respiratory Rate greater than 20, WBC count greater than 12,000 or less than 4000 ABX Reporting Has patient been on IV antibiotics over the past 48 hours?: Yes
[2022-10-02] MEDS: HEPARIN 5,000 UNIT/ML VIAL SUBQ SCH ×2 (15:56→21:10)
[2022-10-02] MEDS ORDERED: AZITHROMYCIN 250 MG TABLET PO SCH (21:00)
[2022-10-02] MEDS: cefTRIAXone 1 GM in SODIUM CHLORIDE 0.9% MINIBAG 100 ML IV SCH (21:12)
[2022-10-03] MEDS: SODIUM CHLORIDE FLUSH 0.9% 10 ML SYRINGE IVP SCH ×3 (00:50→20:53)
[2022-10-03 05:59] LABS: BASOPHILS % (AUTO) 0.3 %; EOSINOPHILS % (AUTO) 0.1 %; HCT - HEMATOCRIT 36.7 % (42.0-52.0); HGB - HEMOGLOBIN 12.6 g/dL (14.0-18.0); LYMPHOCYTES % (AUTO) 11.4 %; MEAN CORPUSCULAR HEMOGLOBIN 29.6 pg (27.0-31.0); MEAN CORPUSCULAR HGB CONC 34.3 g/dL (32.0-36.0); MEAN CORPUSCULAR VOLUME 86.4 fL (80.0-94.0); MEAN PLATELET VOLUME 12.4 fL (7.4-11.4); MONOCYTES % (AUTO) 14.4 %; NEUTROPHILS % (AUTO) 73.2 %; PLT - PLATELET COUNT 293 10^3/uL (130-450); RED BLOOD COUNT 4.25 10^6/uL (4.70-6.10); RED CELL DISTRIBUTION WIDTH 14.6 % (12.0-15.0); WHITE BLOOD COUNT 16.4 x10^3/uL (4.8-10.8)
[2022-10-03 06:05] LABS: ABNORMAL LYMPHS % (MANUAL) 0 %
[2022-10-03 06:10] LABS: BUN - BLOOD UREA NITROGEN 23 mg/dL (6-20); CALCIUM 8.8 mg/dL (8.5-10.3); CARBON DIOXIDE - CO2 22 mmol/L (21-32); CHLORIDE 107 mmol/L (101-111); CREATININE 1.1 mg/dL (0.6-1.2); GFR - MDRD 64 (>89); GLUCOSE 137 mg/dL (70-100); IONIZED CALCIUM IF INDICATED NO; POTASSIUM 3.5 mmol/L (3.5-5.0); SODIUM 140 mmol/L (135-145)
[2022-10-03 06:20] LABS: BAND NEUTROPHILS % (MANUAL) 1 %; DIFFERENTIAL COMMENT MANUAL DIFFERENTIAL; LYMPHOCYTES % (MANUAL) 12 %; MONOCYTES # (MANUAL) 2.3 10^3/uL (0.0-1.0); NEUTROPHILS # (MANUAL) 12.1 10^3/uL (1.5-6.6); PLATELET ESTIMATE, MANUAL NORMAL (130-450,000) (NORMAL); PLATELET MORPHOLOGY NORMAL APPEARANCE (NORMAL); RBC MORPHOLOGY (MULTIPLE) NORMAL APPEARANCE (NORMAL); WBC MORPHOLOGY (MULTIPLE) NORMAL APPEARANCE (NORMAL)
[2022-10-03] MEDS ORDERED: LORazepam 0.5 MG TABLET PO PRN (08:56)
[2022-10-03] MEDS: SODIUM CHLORIDE 0.65% NASAL SPRAY NAS PRN (09:12)
[2022-10-03] MEDS: HEPARIN 5,000 UNIT/ML VIAL SUBQ SCH ×2 (09:13→20:53)
[2022-10-03] MEDS: predniSONE 20 MG TABLET PO SCH (13:22)
--- NOTE | 2022-10-03 14:44 | PROVIDER PROGRESS NOTE ---
Assessment/Plan - Problem List (1) Community acquired pneumonia Qualifiers: Laterality: right Lung location: lower lobe of lung Qualified Code(s): J18.9 - Pneumonia, unspecified organism Assessment/Plan: Laterality: right Lung location: lower lobe of lung Qualified Code(s): J18.9 - Pneumonia, unspecified organism Assessment/Plan: Sputum culture Gram stain shows many WBCs along with gram-positive cocci no other identification is currently available. Patient is continuing to be on IV Rocephin and IV azithromycin. (2) Acute encephalopathy Assessment/Plan: Generalized confusion suspect secondary to infectious process. CT of head without contrast revealed no acute abnormalities -Check MRI of brain but there are no focal findings suggesting CVA. notes she does not want to pursue MRI. -Patient still does have some confusion although it focuses on he does understand why he has to be here he can do this at home explained the need for IV antibiotics along with supplemental oxygen and the importance of this (3) Acute respiratory failure with hypoxia Assessment/Plan: Secondary to community-acquired pneumonia in a patient with pulmonary fibrosis. He usually is not on home O2. ABG done today verify that he was hypoxic requiring continuing O2 supplementation by nasal cannula although he take it off often. Other findings on ABG show he does not have hypercapnia. -Have added prednisone 40 mg daily which may help with his hypoxia as he does have a history of pulmonary fibrosis although he is not on steroids at home (4) Pulmonary fibrosis Assessment/Plan: Does see an outpatient district supervisor for this but has been stable per his report (5) Sepsis Qualifiers: Acute respiratory failure type: with hypoxia Severe sepsis shock status: without septic shock Assessment/Plan: Secondary to community-acquired pneumonia -Meets criteria with tachycardia increased respiratory rate leukocytosis (5) Sepsis Qualifiers: Acute respiratory failure type: with hypoxia Severe sepsis shock status: without septic shock - Current Meds Current Meds: Current Medications Generic Name Dose Route Start Last Admin Trade Name Freq PRN Reason Stop Dose Admin Acetaminophen 650 mg 10/01/22 00:17 10/03/22 10:40 Acetaminophen 325 Mg Tablet PO 650 mg Q4HR PRN Administration Pain 1 to 4, or Fever Heparin Sodium (Porcine) 5,000 unit 10/02/22 14:00 10/03/22 09:13 Heparin 5,000 Unit/Ml Vial SUBQ 5,000 unit BID TEN Administration Ceftriaxone Sodium 1 gm/ 100 mls @ 200 mls/hr 10/01/22 21:00 10/02/22 21:42 Sodium Chloride IV Infused 2100 TEN Infusion Prednisone 40 mg 10/03/22 13:00 10/03/22 13:22 Prednisone 20 Mg Tablet PO 40 mg DAILYWM TEN Administration Sodium Chloride 10 ml 10/01/22 01:00 10/03/22 09:12 Sodium Chloride Flush 0.9% 10 Ml Syringe IVP 10 ml 0100,0900,1700 TEN Administration Sodium Chloride 2 sprays 10/02/22 12:01 10/03/22 09:12 Sodium Chloride 0.65% Nasal [place] SOL 1 spr Q4HR PRN Administration Nasal Congestion - Lab Result Fish Bone Diagrams: 10/03/22 05:25 10/03/22 05:25 - Additional Planning My Orders: My Active Orders 10/02/22 14:00 Heparin [Heparin Sodium (Porcine)] 5,000 unit SUBQ BID 10/03/22 08:56 LORazepam [Ativan] 0.5 mg PO Q6H PRN 10/03/22 13:00 predniSONE [Deltasone] 40 mg PO DAILYWM 10/04/22 05:00 BMP, RFLX TO IONIZED CA IF [CHEM] DAILYLAB CBC - COMP BLD CT W/AUTO DIFF [HEME] DAILYLAB 10/05/22 05:00 BMP, RFLX TO IONIZED CA IF [CHEM] DAILYLAB CBC - COMP BLD CT W/AUTO DIFF [HEME] DAILYLAB 10/06/22 05:00 CBC - COMP BLD CT W/AUTO DIFF [HEME] DAILYLAB Subjective - Subjective Patient Reports: Other (Keeps talking about wanting to go home and not understanding why he has to stay in the hospital for IV antibiotics and supplem ental oxygen) Objective Vital Signs: Vital Signs - 24 hr 10/02/22 10/02/22 10/03/22 15:47 21:21 00:35 Temperature 36.7 C 36.8 C Heart Rate [ 93 99 Radial] Respiratory 20 21 Rate Blood Pressure 152/77 H [Left Brachial artery] Blood Pressure 130/72 [Right Brachial artery] O2 Saturation 93 90 L If not protocol 4 4 6 : Oxygen Flow, liters/minute 10/03/22 10/03/22 10/03/22 00:43 05:28 08:00 Temperature 36.5 C Heart Rate [ 92 Radial] Respiratory 23 20 Rate Blood Pressure [Left Brachial artery] Blood Pressure 145/73 H [Right Brachial artery] O2 Saturation 92 92 94 If not protocol 6 6 6 : Oxygen Flow, liters/minute 10/03/22 10/03/22 10/03/22 08:37 10:36 11:27 Temperature Heart Rate [ Radial] Respiratory Rate Blood Pressure [Left Brachial artery] Blood Pressure [Right Brachial artery] O2 Saturation 92 If not protocol 4 6 6 : Oxygen Flow, liters/minute Oxygen O2 Source Oxymask I&O (Last 24 Hrs): Intake and Output Totals x24h 10/01/22 10/02/22 10/03/22 23:59 23:59 23:59 Intake Total 2521.5 1500 610 Output Total 1150 1 Balance 1371.5 1499 610 General: Alert, Other (Not cooperative wanting to go home) HEENT: Atraumatic Neck: Supple Neuro: Non Focal Cardiovascular: Regular rate, Normal S1, Normal S2 Respiratory: [place] Abdomen: Normal bowel sounds, Soft Extremities: No edema - Results Results: Laboratory Results WBC 16.4 x10^3/uL (4.8-10.8) H 10/03/22 05:25 RBC 4.25 10^6/uL (4.70-6.10) L 10/03/22 05:25 Hgb 12.6 g/dL (14.0-18.0) L 10/03/22 05:25 Hct 36.7 % (42.0-52.0) L 10/03/22 05:25 MCV 86.4 fL (80.0-94.0) 10/03/22 05:25 MCH 29.6 pg (27.0-31.0) 10/03/22 05:25 MCHC 34.3 g/dL (32.0-36.0) 10/03/22 05:25 RDW 14.6 % (12.0-15.0) 10/03/22 05:25 Plt Count 293 10^3/uL (130-450) 10/03/22 05:25 MPV 12.4 fL (7.4-11.4) H 10/03/22 05:25 Neut # (Auto) Not Reportable 10/03/22 05:25 Lymph # (Auto) Not Reportable 10/03/22 05:25 [place] # (Auto) Not Reportable 10/03/22 05:25 Eos # (Auto) Not Reportable 10/03/22 05:25 Baso # (Auto) Not Reportable 10/03/22 05:25 Absolute Nucleated RBC Not Reportable 10/03/22 05:25 Total Counted 100 10/03/22 05:25 Band Neuts % (Manual) 1 % (0-10) 10/03/22 05:25 Abnorm Lymph % (Manual) 0 % 10/03/22 05:25 Nucleated RBC % Not Reportable 10/03/22 05:25 Neutrophils # (Manual) 12.1 10^3/uL (1.5-6.6) H 10/03/22 05:25 Lymphocytes # (Manual) 2.0 10^3/uL (1.5-3.5) 10/03/22 05:25 Monocytes # (Manual) 2.3 10^3/uL (0.0-1.0) H 10/03/22 05:25 Eosinophils # (Manual) 0.0 10^3/uL (0-0.7) 10/03/22 05:25 Basophils # (Manual) 0.0 10^3/uL (0-0.1) 10/03/22 05:25 Differential Comment MANUAL DIFFERENTIAL 10/03/22 05:25 WBC Morphology NORMAL APPEARANCE (NORMAL) 10/03/22 05:25 Platelet Estimate NORMAL (130-450,000) (NORMAL) 10/03/22 05:25 Platelet Morphology NORMAL APPEARANCE (NORMAL) 10/03/22 05:25 RBC Morph Micro Appear NORMAL APPEARANCE (NORMAL) 10/03/22 05:25 Bld Gas Analysis Time 1334 10/02/22 13:20 Sample Site RIGHT RADIAL 10/02/22 13:20 ABG pH 7.49 (7.35-7.45) H 10/02/22 13:20 ABG pCO2 32 mmHg (34-45) L 10/02/22 13:20 ABG pO2 55 mmHg (80-100) L* 10/02/22 13:20 ABG HCO3 23.5 mmol/L (22.0-26.0) 10/02/22 13:20 ABG Total CO2 24.4 MMOL/L (21.0-29.0) 10/02/22 13:20 ABG O2 Saturation 89 % (94-98) L 10/02/22 13:20 ABG Base Excess 0.8 mmol/L (-2.0-3.0) 10/02/22 13:20 Tonio Test POSITIVE 10/02/22 13:20 O2 Delivery Device NASAL CANNULA 10/02/22 13:20 O2 Liters/Min 2.00 LPM 10/02/22 13:20 Sodium 140 mmol/L (135-145) 10/03/22 05:25 Potassium 3.5 mmol/L (3.5-5.0) 10/03/22 05:25 Chloride 107 mmol/L (101-111) 10/03/22 05:25 Carbon Dioxide 22 mmol/L (21-32) 10/03/22 05:25 Anion Gap 11.0 (6-13) 10/03/22 05:25 BUN 23 mg/dL (6-20) H 10/03/22 05:25 Creatinine 1.1 mg/dL (0.6-1.2) 10/03/22 05:25 Estimated GFR (MDRD) 64 (>89) L 10/03/22 05:25 Glucose 137 mg/dL (70-100) H 10/03/22 05:25 POC Whole Bld Glucose 158 mg/dL (70 - 100) H 10/02/22 13:55 Lactic Acid 0.9 mmol/L (0.5-2.2) 09/30/22 21:00 Calcium 8.8 mg/dL (8.5-10.3) 10/03/22 05:25 Ionized Calcium NO 10/03/22 05:25 Total Bilirubin 1.0 mg/dL (0.2-1.0) 09/30/22 21:00 AST 21 IU/L (10-42) 09/30/22 21:00 ALT 19 IU/L (10-60) 09/30/22 21:00 Alkaline Phosphatase 55 IU/L (42-121) 09/30/22 21:00 Total Protein 7.6 g/dL (6.7-8.2) 09/30/22 21:00 Albumin 3.3 g/dL (3.2-5.5) 09/30/22 21:00 Globulin 4.3 g/dL (2.1-4.2) H 09/30/22 21:00 Albumin/Globulin Ratio 0.8 (1.0-2.2) L 09/30/22 21:00 Urine Color YELLOW 09/30/22 23:07 Urine Clarity CLEAR (CLEAR) 09/30/22 23:07 Urine pH 5.5 PH (5.0-7.5) 09/30/22 23:07 Ur Specific [place] 1.020 (1.002-1.030) 09/30/22 23:07 Urine Protein 30 mg/dL (NEGATIVE) H 09/30/22 23:07 Urine Glucose (UA) NEGATIVE mg/dL (NEGATIVE) 09/30/22 23:07 Urine Ketones TRACE mg/dL (NEGATIVE) 09/30/22 23:07 Urine Occult Blood NEGATIVE (NEGATIVE) 09/30/22 23:07 Urine Nitrite NEGATIVE (NEGATIVE) 09/30/22 23:07 Urine Bilirubin NEGATIVE (NEGATIVE) 09/30/22 23:07 Urine Urobilinogen 1 (NORMAL) E.U./dL (NORMAL) 09/30/22 23:07 Ur Leukocyte Esterase NEGATIVE (NEGATIVE) 09/30/22 23:07 Urine RBC 0-5 /HPF (0-5) 09/30/22 23:07 Urine WBC 0-3 /HPF (0-3) 09/30/22 23:07 Ur Squamous Epith Cells RARE Squamous (<= Few) 09/30/22 23:07 Urine Bacteria Rare /HPF (None Seen) 09/30/22 23:07 Urine Mucus Few Strands 09/30/22 23:07 Urine Culture Comments NOT INDICATED 09/30/22 23:07 Nasal Adenovirus (PCR) NOT DETECTED 09/30/22 21:00 Nasal B. parapertussis DNA (PCR) NOT DETECTED 09/30/22 21:00 Nasal Coronavir 229E PCR NOT DETECTED 09/30/22 21:00 Nasal Coronavir HKU1 PCR NOT DETECTED 09/30/22 21:00 Nasal Coronavir NL63 PCR NOT DETECTED 09/30/22 21:00 Nasal Coronavir OC43 PCR NOT DETECTED 09/30/22 21:00 Nasal Enterovir/Rhinovir PCR NOT DETECTED 09/30/22 21:00 Nasal Influenza B PCR NOT DETECTED 09/30/22 21:00 Nasal Influenza A PCR NOT DETECTED 09/30/22 21:00 Nasal Parainfluen 1 PCR NOT DETECTED 09/30/22 21:00 Nasal Parainfluen 2 PCR NOT DETECTED 09/30/22 21:00 Nasal Parainfluen 3 PCR NOT DETECTED 09/30/22 21:00 Nasal Parainfluen 4 PCR NOT DETECTED 09/30/22 21:00 Nasal RSV (PCR) NOT DETECTED 09/30/22 21:00 Nasal B.pertussis DNA PCR NOT DETECTED 09/30/22 21:00 Nasal C.pneumoniae (PCR) NOT DETECTED 09/30/22 21:00 Sol Human Metapneumo PCR NOT DETECTED 09/30/22 21:00 Nasal M.pneumoniae (PCR) NOT DETECTED 09/30/22 21:00 Nasal SARS-CoV-2 (PCR) NOT DETECTED 09/30/22 21:00 Sepsis Event Note (H) - Evaluation Current Stage of Sepsis: Sepsis Possible source of Sepsis: positive: Pulmonary - Sepsis Criteria Sepsis Criteria: Recorded Heart Rate greater than 90 bpm, Recorded Respiratory Rate greater than 20, WBC count greater than 12,000 or less than 4000 ABX Reporting Has patient been on IV antibiotics over the past 48 hours?: Yes
[2022-10-03] MEDS ORDERED: MORPHINE 2 MG/ML CARPUJECT IVP PRN (17:39)
[2022-10-03] MEDS: cefTRIAXone 1 GM in SODIUM CHLORIDE 0.9% MINIBAG 100 ML IV SCH (20:53)
[2022-10-04] MEDS: SODIUM CHLORIDE FLUSH 0.9% 10 ML SYRINGE IVP SCH ×3 (00:21→21:06)
[2022-10-04 05:54] LABS: BASOPHILS % (AUTO) 0.1 %; HCT - HEMATOCRIT 33.7 % (42.0-52.0); HGB - HEMOGLOBIN 11.8 g/dL (14.0-18.0); LYMPHOCYTES # (AUTO) 1.4 10^3/uL (1.5-3.5); LYMPHOCYTES % (AUTO) 9.2 %; MEAN CORPUSCULAR HEMOGLOBIN 29.9 pg (27.0-31.0); MEAN CORPUSCULAR VOLUME 85.3 fL (80.0-94.0); MEAN PLATELET VOLUME 10.1 fL (7.4-11.4); MONOCYTES # (AUTO) 1.3 10^3/uL (0.0-1.0); MONOCYTES % (AUTO) 8.3 %; NEUTROPHILS # (AUTO) 12.3 10^3/uL (1.5-6.6); NEUTROPHILS % (AUTO) 81.6 %; PLT - PLATELET COUNT 416 10^3/uL (130-450); RED BLOOD COUNT 3.95 10^6/uL (4.70-6.10); RED CELL DISTRIBUTION WIDTH 14.4 % (12.0-15.0); WHITE BLOOD COUNT 15.1 x10^3/uL (4.8-10.8)
[2022-10-04 06:02] LABS: BUN - BLOOD UREA NITROGEN 23 mg/dL (6-20); CALCIUM 8.4 mg/dL (8.5-10.3); CARBON DIOXIDE - CO2 26 mmol/L (21-32); CHLORIDE 104 mmol/L (101-111); CREATININE 1.1 mg/dL (0.6-1.2); GFR - MDRD 64 (>89); GLUCOSE 131 mg/dL (70-100); IONIZED CALCIUM IF INDICATED NO; POTASSIUM 3.4 mmol/L (3.5-5.0); SODIUM 141 mmol/L (135-145)
[2022-10-04] MEDS: HEPARIN 5,000 UNIT/ML VIAL SUBQ SCH ×2 (08:52→21:06)
[2022-10-04] MEDS: predniSONE 20 MG TABLET PO SCH (08:52)
[2022-10-04] MEDS: SODIUM CHLORIDE 0.65% NASAL SPRAY NAS PRN (10:28)
--- NOTE | 2022-10-04 16:46 | PROVIDER PROGRESS NOTE ---
Assessment/Plan - Problem List (1) Community acquired pneumonia Qualifiers: Laterality: right Lung location: lower lobe of lung Qualified Code(s): J18.9 - Pneumonia, unspecified organism Assessment/Plan: Sputum culture Gram stain shows many WBCs along with gram-positive cocci. There is growth in the spt cx, not yet identified. Blood cultures are negative today. Plan: Patient is continuing to be on empiric IV Rocephin and IV azithromycin. Await sputum culture results to tailor antibiotic (2) Acute respiratory failure with hypoxia Assessment/Plan: Secondary to community-acquired pneumonia in a patient with pulmonary fibrosis. He usually is not on home O2. ABG showed hypoxia requiring continuing O2 supplementation Plan: Prednisone 40 mg daily was added to help with his hypoxia as he does have a history of pulmonary fibrosis. He seems to have improved since being started on IV steroids. I will start a slow taper of the steroids He would agree to go home on supplemental O2 (3) Pulmonary fibrosis Assessment/Plan: He does see an outpatient trip follower for this but has not seen that provider in years Plan: He seems to have improved since being started on IV steroids. I will start a slow taper of the steroids He would qualify to get supplemental O2 at home. We will plan to do an oximetry walk test on the day of discharge. (4) Diarrhea Plan: I will check for C. difficile. If negative C. difficile then can start Imodium (5) Sepsis Qualifiers: Acute respiratory failure type: with hypoxia Severe sepsis shock status: without septic shock Assessment/Plan: RESOLVED He met criteria with tachycardia, increased respiratory rate, new hypoxia and leukocytosis. Secondary to community-acquired pneumonia (6) Acute encephalopathy Assessment/Plan: RESOLVED Generalized confusion suspect secondary to infectious process. CT of head without contrast revealed no acute abnormalities. He declined undergoing a brain MRI. Yesterday he wanted to sign out AMA. Today he is cooperative, inquisitive and understands why he is here and wants to get better. We will order PT and OT eval - Current Meds Current Meds: Current Medications Generic Name Dose Route Start Last Admin Trade Name Freq PRN Reason Stop Dose Admin Acetaminophen 650 mg 10/01/22 00:17 10/03/22 10:40 Acetaminophen 325 Mg Tablet PO 650 mg Q4HR PRN Administration Pain 1 to 4, or Fever Heparin Sodium (Porcine) 5,000 unit 10/02/22 14:00 06/13/23 08:52 Heparin 5,000 Unit/Ml Vial SUBQ 5,000 unit BID TEN Administration Ceftriaxone Sodium 1 gm/ 100 mls @ 200 mls/hr 10/01/22 21:00 10/03/22 21:23 Sodium Chloride IV Infused 2100 TEN Infusion Prednisone 40 mg 10/03/22 13:00 10/04/22 08:52 Prednisone 20 Mg Tablet PO 40 mg DAILYWM TEN Administration Sodium Chloride 10 ml 10/01/22 01:00 10/04/22 08:52 Sodium Chloride Flush 0.9% 10 Ml Syringe IVP 10 ml 0100,0900,1700 TEN Administration Sodium Chloride 2 sprays 10/02/22 12:01 10/04/22 10:28 Sodium Chloride 0.65% Nasal [place] SOL 2 spr Q4HR PRN Administration Nasal Congestion - Lab Result Fish Bone Diagrams: 10/04/22 05:35 10/04/22 05:35 Subjective - Subjective Patient Reports: Feeling Better (Less cough, still has productive munguia sputum.), Dizzines (When he gets out of bed he feels dizzy with walking and also feels overall weak) Objective Vital Signs: Vital Signs - 24 hr 10/04/22 10/04/22 00:00 08:13 Temperature 36.3 C L Heart Rate [ 86 85 Brachial] Respiratory 22 22 Rate Blood Pressure 153/75 H 129/65 [Right Brachial artery] O2 Saturation 99 95 If not protocol 4 4 : Oxygen Flow, liters/minute Oxygen O2 Source Oxymizer I&O (Last 24 Hrs): Intake and Output Totals x24h 10/02/22 10/03/22 10/04/22 23:59 23:59 23:59 Intake Total 1500 950 870 Output Total 1 250 Balance 1499 950 620 General: Alert, Oriented x3, No acute distress HEENT: Mucous membr. moist/pink, Other (Wearing O2 via oxymizer) Neck: Supple, No JVD Neuro: Alert, Non Focal Cardiovascular: Regular rate, No murmurs Respiratory: No respiratory distress (on suppl O2), Rhonchi (R mid lung lateraly and R base posteriorly) Abdomen: Normal bowel sounds, Soft, No tenderness Extremities: No clubbing, No edema, No tenderness/swelling - Results Results: Laboratory Results WBC 15.1 x10^3/uL (4.8-10.8) H 10/04/22 05:35 RBC 3.95 10^6/uL (4.70-6.10) L 10/04/22 05:35 Hgb 11.8 g/dL (14.0-18.0) L 10/04/22 05:35 Hct 33.7 % (42.0-52.0) L 10/04/22 05:35 MCV 85.3 fL (80.0-94.0) 10/04/22 05:35 MCH 29.9 pg (27.0-31.0) 10/04/22 05:35 MCHC 35.0 g/dL (32.0-36.0) 10/04/22 05:35 RDW 14.4 % (12.0-15.0) 10/04/22 05:35 Plt Count 416 10^3/uL (130-450) 10/04/22 05:35 MPV 10.1 fL (7.4-11.4) 10/04/22 05:35 Neut # (Auto) 12.3 10^3/uL (1.5-6.6) H 10/04/22 05:35 Lymph # (Auto) 1.4 10^3/uL (1.5-3.5) L 10/04/22 05:35 [place] # (Auto) 1.3 10^3/uL (0.0-1.0) H 10/04/22 05:35 Eos # (Auto) 0.0 10^3/uL (0.0-0.7) 10/04/22 05:35 Baso # (Auto) 0.0 10^3/uL (0.0-0.1) 10/04/22 05:35 Absolute Nucleated RBC 0.00 x10^3/uL 10/04/22 05:35 Total Counted 100 10/03/22 05:25 Band Neuts % (Manual) 1 % (0-10) 10/03/22 05:25 Abnorm Lymph % (Manual) 0 % 10/03/22 05:25 Nucleated RBC % 0.0 /100WBC 10/04/22 05:35 Neutrophils # (Manual) 12.1 10^3/uL (1.5-6.6) H 10/03/22 05:25 Lymphocytes # (Manual) 2.0 10^3/uL (1.5-3.5) 10/03/22 05:25 Monocytes # (Manual) 2.3 10^3/uL (0.0-1.0) H 10/03/22 05:25 Eosinophils # (Manual) 0.0 10^3/uL (0-0.7) 10/03/22 05:25 Basophils # (Manual) 0.0 10^3/uL (0-0.1) 10/03/22 05:25 Differential Comment MANUAL DIFFERENTIAL 10/03/22 05:25 WBC Morphology NORMAL APPEARANCE (NORMAL) 10/03/22 05:25 Platelet Estimate NORMAL (130-450,000) (NORMAL) 10/03/22 05:25 Platelet Morphology NORMAL APPEARANCE (NORMAL) 10/03/22 05:25 RBC Morph Micro Appear NORMAL APPEARANCE (NORMAL) 10/03/22 05:25 Bld Gas Analysis Time 1334 10/02/22 13:20 Sample Site RIGHT RADIAL 10/02/22 13:20 ABG pH 7.49 (7.35-7.45) H 10/02/22 13:20 ABG pCO2 32 mmHg (34-45) L 10/02/22 13:20 ABG pO2 55 mmHg (80-100) L* 10/02/22 13:20 ABG HCO3 23.5 mmol/L (22.0-26.0) 10/02/22 13:20 ABG Total CO2 24.4 MMOL/L (21.0-29.0) 10/02/22 13:20 ABG O2 Saturation 89 % (94-98) L 10/02/22 13:20 ABG Base Excess 0.8 mmol/L (-2.0-3.0) 10/02/22 13:20 Tonio Test POSITIVE 10/02/22 13:20 O2 Delivery Device NASAL CANNULA 10/02/22 13:20 O2 Liters/Min 2.00 LPM 10/02/22 13:20 Sodium 141 mmol/L (135-145) 10/04/22 05:35 Potassium 3.4 mmol/L (3.5-5.0) L 10/04/22 05:35 Chloride 104 mmol/L (101-111) 10/04/22 05:35 Carbon Dioxide 26 mmol/L (21-32) 10/04/22 05:35 Anion Gap 11.0 (6-13) 10/04/22 05:35 BUN 23 mg/dL (6-20) H 10/04/22 05:35 Creatinine 1.1 mg/dL (0.6-1.2) 10/04/22 05:35 Estimated GFR (MDRD) 64 (>89) L 10/04/22 05:35 Glucose 131 mg/dL (70-100) H 10/04/22 05:35 POC Whole Bld Glucose 158 mg/dL (70 - 100) H 10/02/22 13:55 Lactic Acid 0.9 mmol/L (0.5-2.2) 09/30/22 21:00 Calcium 8.4 mg/dL (8.5-10.3) L 10/04/22 05:35 Ionized Calcium NO 10/04/22 05:35 Total Bilirubin 1.0 mg/dL (0.2-1.0) 09/30/22 21:00 AST 21 IU/L (10-42) 09/30/22 21:00 ALT 19 IU/L (10-60) 09/30/22 21:00 Alkaline Phosphatase 55 IU/L (42-121) 09/30/22 21:00 Total Protein 7.6 g/dL (6.7-8.2) 09/30/22 21:00 Albumin 3.3 g/dL (3.2-5.5) 09/30/22 21:00 Globulin 4.3 g/dL (2.1-4.2) H 09/30/22 21:00 Albumin/Globulin Ratio 0.8 (1.0-2.2) L 09/30/22 21:00 Urine Color YELLOW 09/30/22 23:07 Urine Clarity CLEAR (CLEAR) 09/30/22 23:07 Urine pH 5.5 PH (5.0-7.5) 09/30/22 23:07 Ur Specific [place] 1.020 (1.002-1.030) 09/30/22 23:07 Urine Protein 30 mg/dL (NEGATIVE) H 09/30/22 23:07 Urine Glucose (UA) NEGATIVE mg/dL (NEGATIVE) 09/30/22 23:07 Urine Ketones TRACE mg/dL (NEGATIVE) 09/30/22 23:07 Urine Occult Blood NEGATIVE (NEGATIVE) 09/30/22 23:07 Urine Nitrite NEGATIVE (NEGATIVE) 09/30/22 23:07 Urine Bilirubin NEGATIVE (NEGATIVE) 09/30/22 23:07 Urine Urobilinogen 1 (NORMAL) E.U./dL (NORMAL) 09/30/22 23:07 Ur Leukocyte Esterase NEGATIVE (NEGATIVE) 09/30/22 23:07 Urine RBC 0-5 /HPF (0-5) 09/30/22 23:07 Urine WBC 0-3 /HPF (0-3) 09/30/22 23:07 Ur Squamous Epith Cells RARE Squamous (<= Few) 09/30/22 23:07 Urine Bacteria Rare /HPF (None Seen) 09/30/22 23:07 Urine Mucus Few Strands 09/30/22 23:07 Urine Culture Comments NOT INDICATED 09/30/22 23:07 Nasal Adenovirus (PCR) NOT DETECTED 09/30/22 21:00 Nasal B. parapertussis DNA (PCR) NOT DETECTED 09/30/22 21:00 Nasal Coronavir 229E PCR NOT DETECTED 09/30/22 21:00 Nasal Coronavir HKU1 PCR NOT DETECTED 09/30/22 21:00 Nasal Coronavir NL63 PCR NOT DETECTED 09/30/22 21:00 Nasal Coronavir OC43 PCR NOT DETECTED 09/30/22 21:00 Nasal Enterovir/Rhinovir PCR NOT DETECTED 09/30/22 21:00 Nasal Influenza B PCR NOT DETECTED 09/30/22 21:00 Nasal Influenza A PCR NOT DETECTED 09/30/22 21:00 Nasal Parainfluen 1 PCR NOT DETECTED 09/30/22 21:00 Nasal Parainfluen 2 PCR NOT DETECTED 09/30/22 21:00 Nasal Parainfluen 3 PCR NOT DETECTED 09/30/22 21:00 Nasal Parainfluen 4 PCR NOT DETECTED 09/30/22 21:00 Nasal RSV (PCR) NOT DETECTED 09/30/22 21:00 Nasal B.pertussis DNA PCR NOT DETECTED 09/30/22 21:00 Nasal C.pneumoniae (PCR) NOT DETECTED 09/30/22 21:00 Sol Human Metapneumo PCR NOT DETECTED 09/30/22 21:00 Nasal M.pneumoniae (PCR) NOT DETECTED 09/30/22 21:00 Nasal SARS-CoV-2 (PCR) NOT DETECTED 06/09/23 21:00 Sepsis Event Note (H) - Evaluation Current Stage of Sepsis: Sepsis Possible source of Sepsis: positive: Pulmonary - Sepsis Criteria Sepsis Criteria: Recorded Heart Rate greater than 90 bpm, Recorded Respiratory Rate greater than 20, WBC count greater than 12,000 or less than 4000
[2022-10-04] MEDS: cefTRIAXone 1 GM in SODIUM CHLORIDE 0.9% MINIBAG 100 ML IV SCH (21:06)
[2022-10-05] MEDS: SODIUM CHLORIDE FLUSH 0.9% 10 ML SYRINGE IVP SCH ×3 (00:42→20:37)
[2022-10-05 06:16] LABS: BASOPHILS % (AUTO) 0.1 %; EOSINOPHILS % (AUTO) 0.1 %; HCT - HEMATOCRIT 33.9 % (42.0-52.0); HGB - HEMOGLOBIN 11.9 g/dL (14.0-18.0); LYMPHOCYTES # (AUTO) 1.9 10^3/uL (1.5-3.5); LYMPHOCYTES % (AUTO) 11.7 %; MEAN CORPUSCULAR HGB CONC 35.1 g/dL (32.0-36.0); MEAN CORPUSCULAR VOLUME 85.4 fL (80.0-94.0); MONOCYTES # (AUTO) 1.2 10^3/uL (0.0-1.0); MONOCYTES % (AUTO) 7.7 %; NEUTROPHILS # (AUTO) 12.8 10^3/uL (1.5-6.6); NEUTROPHILS % (AUTO) 79.5 %; PLT - PLATELET COUNT 430 10^3/uL (130-450); RED BLOOD COUNT 3.97 10^6/uL (4.70-6.10); RED CELL DISTRIBUTION WIDTH 14.5 % (12.0-15.0); WHITE BLOOD COUNT 16.1 x10^3/uL (4.8-10.8)
[2022-10-05 06:26] LABS: BUN - BLOOD UREA NITROGEN 26 mg/dL (6-20); CALCIUM 8.2 mg/dL (8.5-10.3); CARBON DIOXIDE - CO2 26 mmol/L (21-32); CHLORIDE 109 mmol/L (101-111); CREATININE 1.1 mg/dL (0.6-1.2); GFR - MDRD 64 (>89); GLUCOSE 115 mg/dL (70-100); IONIZED CALCIUM IF INDICATED YES; SODIUM 142 mmol/L (135-145)
[2022-10-05 06:29] LABS: CALCIUM, IONIZED 1.09 mmol/L (1.15-1.33); VBG PH 7.46 (7.31-7.41)
--- NOTE | 2022-10-05 09:06 | PROVIDER PROGRESS NOTE ---
Assessment/Plan - Problem List (1) Acute respiratory failure with hypoxia Assessment/Plan: This is due to his community-acquired pneumonia in a patient with underlying pulmonary fibrosis. He usually is not on home O2. Yesterday his supplemental O2 was at 6 L, today down to 4 L. However, with just walking to the bathroom today, he desaturated to 65% on 4 L O2, and knees wobbled and he was near-syncopal. Needed to be helped back to bed by his RN and son, who was at bedside. He needed to have suppl O2 turned up to 15L temporarily to recover his O2 sats back up. Plan: Continue with supplemental O2 keeping sats greater than 88%. I will add an order to increase supplemental O2 to 10 L/min with any activity I will change his prednisone to Solu-Medrol since he needs treatment with steroids as he does have a history of pulmonary fibrosis. I will add Mucinex for expectortation, which has not yet been ordered and I may possibly add bronchodilators Recheck CXR today He would agree to go home on supplemental O2 (2) Acute exacerbation of idiopathic pulmonary fibrosis Assessment/Plan: He does see an outpatient plate keeper for this but has not seen that provider in years He improved slightly since being started on steroids. Plan: He needs more aggressive management, therefore I will change po Prednisone to iv Solu-Medrol at high dose for 3 days, than switch to a slow Prednisone taper. He would qualify to get supplemental O2 at home. We will plan to do an oximetry walk test on the day of discharge. Will add antacid therapy, for stress ulcer prophylaxis, which can risk of acid aspiration. Obtain an Echo to evaluate his right heart and his PA pressure I updated the patient and at bedside today in his room. (3) Community acquired pneumonia Qualifiers: Laterality: right Lung location: lower lobe of lung Qualified Code(s): J18.9 - Pneumonia, unspecified organism Assessment/Plan: Sputum Gram stain shows many WBCs along with gram-positive cocci. There is growth in the spt cx, yet identified. Blood cultures are negative to date. Plan: Patient is continuing to be on empiric IV Rocephin and IV azithromycin. Await sputum culture results to tailor antibiotic Recheck CXR today>> Worsening reticular pattern was reported. (4) Acute encephalopathy Assessment/Plan: He had generalized confusion at admission, suspected to be secondary to infectious process and from hypoxia. CT of head without contrast revealed no acute abnormalities. He declined undergoing a brain MRI. Several days ago he wanted to sign out AMA. Yesterday and today he is cooperative, and understands why he is here and wants to get better. Today he says he is "ready give up". He wishes he felt better. Plan: PT and OT evals to be done today I asked the patient to think about what he would want if pulmonary status worsened and he needed to be on a ventilator, he did not know the answer right a way. He and the both remarked that he has a DNR. I will change that in the orders. (5) Sepsis Qualifiers: Acute respiratory failure type: with hypoxia Severe sepsis shock status: without septic shock Assessment/Plan: RESOLVED He met criteria with tachycardia, increased respiratory rate, new hypoxia and leukocytosis. Secondary to community-acquired pneumonia - Current Meds Current Meds: Current Medications Generic Name Dose Route Start Last Admin Trade Name Freq PRN Reason Stop Dose Admin Acetaminophen 650 mg 10/01/22 00:17 10/03/22 10:40 Acetaminophen 325 Mg Tablet PO 650 mg Q4HR PRN Administration Pain 1 to 4, or Fever Heparin Sodium (Porcine) 5,000 unit 10/02/22 14:00 10/04/22 21:06 Heparin 5,000 Unit/Ml Vial SUBQ 5,000 unit BID TEN Administration Ceftriaxone Sodium 1 gm/ 100 mls @ 200 mls/hr 10/01/22 21:00 10/04/22 21:36 Sodium Chloride IV Infused 2100 TEN Infusion Sodium Chloride 10 ml 10/01/22 01:00 10/05/22 00:42 Sodium Chloride Flush 0.9% 10 Ml Syringe IVP 10 ml 0100,0900,1700 TEN Administration Sodium Chloride 2 sprays 10/02/22 12:01 10/04/22 10:28 Sodium Chloride 0.65% Nasal [place] SOL 2 spr Q4HR PRN Administration Nasal Congestion - Lab Result Fish Bone Diagrams: 10/05/22 05:35 10/05/22 05:35 - Additional Planning My Orders: My Active Orders 10/04/22 16:49 Acapella (Flutter Valve Device [RC] .tid 10/05/22 Breakfast DIET [Soft (Low Fiber) Diet] [DIET] 10/05/22 08:59 Miscellaenous Nursing Order [RC] QSHIFT 10/05/22 09:00 guaiFENesin [Mucinex] 600 mg PO BID 10/05/22 14:00 methylPREDNISolone SUCCINATE [SOLU-Medrol (125MG VIAL)] 125 mg IVP TID Subjective - Subjective Patient Reports: Shortness of Breath, Other (Is confused and dizzy when walking (which is when he desaturates severely). Cough has improved significantly in the past 2 days) Objective Vital Signs: Vital Signs - 24 hr 10/04/22 10/04/22 10/04/22 11:00 16:00 19:50 Temperature 36.2 C L Heart Rate [ 85 Brachial] Respiratory 26 H Rate Blood Pressure 147/68 H [Right Brachial artery] O2 Saturation 100 If not protocol 4 4 4 : Oxygen Flow, liters/minute 10/05/22 10/05/22 10/05/22 00:44 07:05 07:22 Temperature 37.0 C Heart Rate [ 77 Brachial] Respiratory 22 35 H 24 Rate Blood Pressure 159/79 H [Right Brachial artery] O2 Saturation 93 65 L 90 L If not protocol 4 4 15 : Oxygen Flow, liters/minute 10/05/22 10/05/22 10/05/22 07:31 07:42 07:43 Temperature Heart Rate [ Brachial] Respiratory 20 Rate Blood Pressure [Right Brachial artery] O2 Saturation 94 95 If not protocol 4 9 6 : Oxygen Flow, liters/minute 10/05/22 10/05/22 10/05/22 08:05 08:08 08:57 Temperature 36.4 C L Heart Rate [ 77 Brachial] Respiratory 93 H Rate Blood Pressure 128/66 [Right Brachial artery] O2 Saturation 80 L 92 If not protocol 6 10 11 : Oxygen Flow, liters/minute Oxygen O2 Source Oxymizer I&O (Last 24 Hrs): Intake and Output Totals x24h 10/03/22 10/04/22 10/05/22 23:59 23:59 23:59 Intake Total 950 1540 750 Output Total 250 275 Balance 950 1290 475 General: Alert, Oriented x3 HEENT: Mucous membr. moist/pink, Other (Wearing O2 via Oxymizer n.c.) Neuro: Alert, Non Focal Cardiovascular: Regular rate, No murmurs Respiratory: Rales (Bibasilar Velcro rales, rhonchi in right midlung field heard ant and posteriorly.), Rhonchi Abdomen: Normal bowel sounds, Soft Extremities: No clubbing, No edema, No tenderness/swelling - Results Results: Laboratory Results WBC 16.1 x10^3/uL (4.8-10.8) H 10/05/22 05:35 RBC 3.97 10^6/uL (4.70-6.10) L 10/05/22 05:35 Hgb 11.9 g/dL (14.0-18.0) L 10/05/22 05:35 Hct 33.9 % (42.0-52.0) L 10/05/22 05:35 MCV 85.4 fL (80.0-94.0) 10/05/22 05:35 MCH 30.0 pg (27.0-31.0) 10/05/22 05:35 MCHC 35.1 g/dL (32.0-36.0) 10/05/22 05:35 RDW 14.5 % (12.0-15.0) 10/05/22 05:35 Plt Count 430 10^3/uL (130-450) 10/05/22 05:35 MPV 11.0 fL (7.4-11.4) 10/05/22 05:35 Neut # (Auto) 12.8 10^3/uL (1.5-6.6) H 10/05/22 05:35 Lymph # (Auto) 1.9 10^3/uL (1.5-3.5) 10/05/22 05:35 [place] # (Auto) 1.2 10^3/uL (0.0-1.0) H 10/05/22 05:35 Eos # (Auto) 0.0 10^3/uL (0.0-0.7) 10/05/22 05:35 Baso # (Auto) 0.0 10^3/uL (0.0-0.1) 10/05/22 05:35 Absolute Nucleated RBC 0.00 x10^3/uL 10/05/22 05:35 Total Counted 100 10/03/22 05:25 Band Neuts % (Manual) 1 % (0-10) 10/03/22 05:25 Abnorm Lymph % (Manual) 0 % 10/03/22 05:25 Nucleated RBC % 0.0 /100WBC 10/05/22 05:35 Neutrophils # (Manual) 12.1 10^3/uL (1.5-6.6) H 10/03/22 05:25 Lymphocytes # (Manual) 2.0 10^3/uL (1.5-3.5) 10/03/22 05:25 Monocytes # (Manual) 2.3 10^3/uL (0.0-1.0) H 10/03/22 05:25 Eosinophils # (Manual) 0.0 10^3/uL (0-0.7) 10/03/22 05:25 Basophils # (Manual) 0.0 10^3/uL (0-0.1) 10/03/22 05:25 Differential Comment MANUAL DIFFERENTIAL 10/03/22 05:25 WBC Morphology NORMAL APPEARANCE (NORMAL) 10/03/22 05:25 Platelet Estimate NORMAL (130-450,000) (NORMAL) 10/03/22 05:25 Platelet Morphology NORMAL APPEARANCE (NORMAL) 10/03/22 05:25 RBC Morph Micro Appear NORMAL APPEARANCE (NORMAL) 10/03/22 05:25 Bld Gas Analysis Time 1334 10/02/22 13:20 Sample Site RIGHT RADIAL 10/02/22 13:20 ABG pH 7.49 (7.35-7.45) H 10/02/22 13:20 ABG pCO2 32 mmHg (34-45) L 10/02/22 13:20 ABG pO2 55 mmHg (80-100) L* 10/02/22 13:20 ABG HCO3 23.5 mmol/L (22.0-26.0) 10/02/22 13:20 ABG Total CO2 24.4 MMOL/L (21.0-29.0) 10/02/22 13:20 ABG O2 Saturation 89 % (94-98) L 10/02/22 13:20 ABG Base Excess 0.8 mmol/L (-2.0-3.0) 10/02/22 13:20 Tonio Test POSITIVE 10/02/22 13:20 VBG pH 7.460 (7.31-7.41) H 10/05/22 05:35 Ionized Calcium 1.09 mmol/L (1.15-1.33) L 10/05/22 05:35 O2 Delivery Device NASAL CANNULA 10/02/22 13:20 O2 Liters/Min 2.00 LPM 10/02/22 13:20 Sodium 142 mmol/L (135-145) 10/05/22 05:35 Potassium 3.0 mmol/L (3.5-5.0) L 10/05/22 05:35 Chloride 109 mmol/L (101-111) 10/05/22 05:35 Carbon Dioxide 26 mmol/L (21-32) 10/05/22 05:35 Anion Gap 7.0 (6-13) 10/05/22 05:35 BUN 26 mg/dL (6-20) H 10/05/22 05:35 Creatinine 1.1 mg/dL (0.6-1.2) 10/05/22 05:35 Estimated GFR (MDRD) 64 (>89) L 10/05/22 05:35 Glucose 115 mg/dL (70-100) H 10/05/22 05:35 POC Whole Bld Glucose 158 mg/dL (70 - 100) H 10/02/22 13:55 Lactic Acid 0.9 mmol/L (0.5-2.2) 09/30/22 21:00 Calcium 8.2 mg/dL (8.5-10.3) L 10/05/22 05:35 Ionized Calcium YES 10/05/22 05:35 Total Bilirubin 1.0 mg/dL (0.2-1.0) 09/30/22 21:00 AST 21 IU/L (10-42) 09/30/22 21:00 ALT 19 IU/L (10-60) 09/30/22 21:00 Alkaline Phosphatase 55 IU/L (42-121) 09/30/22 21:00 Total Protein 7.6 g/dL (6.7-8.2) 09/30/22 21:00 Albumin 3.3 g/dL (3.2-5.5) 09/30/22 21:00 Globulin 4.3 g/dL (2.1-4.2) H 09/30/22 21:00 Albumin/Globulin Ratio 0.8 (1.0-2.2) L 09/30/22 21:00 Urine Color YELLOW 09/30/22 23:07 Urine Clarity CLEAR (CLEAR) 09/30/22 23:07 Urine pH 5.5 PH (5.0-7.5) 09/30/22 23:07 Ur Specific [place] 1.020 (1.002-1.030) 09/30/22 23:07 Urine Protein 30 mg/dL (NEGATIVE) H 09/30/22 23:07 Urine Glucose (UA) NEGATIVE mg/dL (NEGATIVE) 09/30/22 23:07 Urine Ketones TRACE mg/dL (NEGATIVE) 09/30/22 23:07 Urine Occult Blood NEGATIVE (NEGATIVE) 09/30/22 23:07 Urine Nitrite NEGATIVE (NEGATIVE) 09/30/22 23:07 Urine Bilirubin NEGATIVE (NEGATIVE) 09/30/22 23:07 Urine Urobilinogen 1 (NORMAL) E.U./dL (NORMAL) 09/30/22 23:07 Ur Leukocyte Esterase NEGATIVE (NEGATIVE) 09/30/22 23:07 Urine RBC 0-5 /HPF (0-5) 09/30/22 23:07 Urine WBC 0-3 /HPF (0-3) 09/30/22 23:07 Ur Squamous Epith Cells RARE Squamous (<= Few) 09/30/22 23:07 Urine Bacteria Rare /HPF (None Seen) 09/30/22 23:07 Urine Mucus Few Strands 09/30/22 23:07 Urine Culture Comments NOT INDICATED 09/30/22 23:07 Nasal Adenovirus (PCR) NOT DETECTED 09/30/22 21:00 Nasal B. parapertussis DNA (PCR) NOT DETECTED 09/30/22 21:00 Nasal Coronavir 229E PCR NOT DETECTED 09/30/22 21:00 Nasal Coronavir HKU1 PCR NOT DETECTED 09/30/22 21:00 Nasal Coronavir NL63 PCR NOT DETECTED 09/30/22 21:00 Nasal Coronavir OC43 PCR NOT DETECTED 09/30/22 21:00 Nasal Enterovir/Rhinovir PCR NOT DETECTED 09/30/22 21:00 Nasal Influenza B PCR NOT DETECTED 09/30/22 21:00 Nasal Influenza A PCR NOT DETECTED 09/30/22 21:00 Nasal Parainfluen 1 PCR NOT DETECTED 09/30/22 21:00 Nasal Parainfluen 2 PCR NOT DETECTED 09/30/22 21:00 Nasal Parainfluen 3 PCR NOT DETECTED 09/30/22 21:00 Nasal Parainfluen 4 PCR NOT DETECTED 09/30/22 21:00 Nasal RSV (PCR) NOT DETECTED 09/30/22 21:00 Nasal B.pertussis DNA PCR NOT DETECTED 09/30/22 21:00 Nasal C.pneumoniae (PCR) NOT DETECTED 09/30/22 21:00 Sol Human Metapneumo PCR NOT DETECTED 09/30/22 21:00 Nasal M.pneumoniae (PCR) NOT DETECTED 09/30/22 21:00 Nasal SARS-CoV-2 (PCR) NOT DETECTED 09/30/22 21:00 Sepsis Event Note (H) - Evaluation Current Stage of Sepsis: Sepsis Possible source of Sepsis: positive: Pulmonary - Sepsis Criteria Sepsis Criteria: Recorded Heart Rate greater than 90 bpm, Recorded Respiratory Rate greater than 20, WBC count greater than 12,000 or less than 4000
--- NOTE | 2022-10-05 09:09 | XRAY Report ---
PROCEDURE: Chest 1 View X-Ray INDICATIONS: Severe hypoxia, acute PNA Hx pulm fibrosis TECHNIQUE: One view of the chest was acquired. COMPARISON: Radiograph 09/30/2022 FINDINGS: Surgical changes and devices: None. Lungs and pleura: Diffuse reticulation, with superimposed hazy airspace opacities. Mediastinum: Mediastinal contours appear normal. Heart size is normal. Bones and chest wall: No suspicious bony lesions. Overlying soft tissues appear unremarkable. IMPRESSION: Diffuse reticulation, with superimposed hazy airspace opacities. This is significantly increased comp ared with prior. Differential includes acute lung injury, pulmonary edema, infection or acute exacerb ation of interstitial lung disease. Reviewed by: Srinivas Heart on 10/05/2022 9:08 AM PDT Approved by: Srinivas Heart on 10/05/2022 9:08 AM PDT Station ID: [id number]
[2022-10-05] MEDS: HEPARIN 5,000 UNIT/ML VIAL SUBQ SCH ×2 (09:17→21:30)
[2022-10-05] MEDS: guaiFENesin 600 MG TABLET PO SCH ×2 (09:17→20:40)
[2022-10-05] MEDS: methylPREDNISolone SUCCINATE 125 MG/2 ML VIAL IVP SCH ×3 (11:31→21:04)
[2022-10-05] MEDS: SODIUM CHLORIDE 0.65% NASAL SPRAY NAS PRN (12:14)
[2022-10-05] MEDS: SACCHAROMYCES BOULARDII 250 MG CAPSULE PO SCH (17:06)
[2022-10-05 17:45] LABS: ABG BASE EXCESS 2.1 mmol/L (-2.0-3.0); ABG HCO3 24.8 mmol/L (22.0-26.0); ABG OXYGEN SATURATION 94 % (94-98); ABG PCO2 33 mmHg (34-45); ABG PH 7.49 (7.35-7.45); ABG PO2 67 mmHg (80-100); ABG TCO2 25.8 MMOL/L (21.0-29.0); ALLEN TEST POSITIVE
--- NOTE | 2022-10-05 18:57 | CT Report ---
PROCEDURE: HEAD WO INDICATIONS: Recurrent encephalopathy/confusion TECHNIQUE: Noncontrast 4.5 mm thick angled axial sections acquired from the foramen magnum to the vertex. For r adiation dose reduction, the following was used: automated exposure control, adjustment of mA and/or kV according to patient size. COMPARISON: 10/02/2022 FINDINGS: Image quality: Excellent. CSF spaces: Basal cisterns are patent. No extra-axial fluid collections. Ventricles are normal in size and shape. Brain: No midline shift. No intracranial masses or hemorrhage. Tiny hypodensity in the left nuria. Findings are superimposed on mild diffuse periventricular and subcortical white matter hypodensity. T here are benign basal ganglia calcifications. Heavy atherosclerotic calcifications. Jain-white matter interface is normal. Skull and face: Calvarium and visualized facial bones are intact, without suspicious lesions. Sinuses: Visualized sinuses and mastoids are clear. IMPRESSION: 1. No CT evidence of acute intracranial process. 2. Age-appropriate findings of mild chronic microvascular ischemic changes. Reviewed by: Evelyn Walters MD on 10/05/2022 6:56 PM PDT Approved by: Evelyn Walters MD on 10/05/2022 6:56 PM PDT Station ID: [id number]
[2022-10-05] MEDS ORDERED: cefTRIAXone 1 GM VIAL ONE (20:31)
[2022-10-05] MEDS ORDERED: SODIUM CHLORIDE 0.9% MINIBAG 100 ML IV ONE (20:34)
[2022-10-05] MEDS: CALCIUM CARBONATE CHEW 500 MG TABLET PO SCH (20:37)
[2022-10-05] MEDS: FAMOTIDINE 20 MG TABLET PO SCH (20:40)
[2022-10-05] MEDS: POTASSIUM CHLORIDE 20 MEQ TABLET PO SCH ×2 (20:40→22:11)
[2022-10-05] MEDS: cefTRIAXone 1 GM in SODIUM CHLORIDE 0.9% MINIBAG 100 ML IV SCH (20:41)
--- NOTE | 2022-10-05 21:12 | MRI Report ---
PROCEDURE: BRAIN WO INDICATIONS: Recurrent encephalopathy TECHNIQUE: Noncontrast axial T1 spin echo, axial T2 fast spin echo, sagittal and axial FLAIR, coronal T2 fast sp in echo, axial gradient echo, axial diffusion and ADC through the brain. COMPARISON: Head CT performed the same day. Head CT performed 10/02/2022 FINDINGS: Image quality: Excellent. CSF Spaces: Basal cisterns are patent. No extra-axial fluid collections. Ventricles are normal in size and shape. Brain: No intracranial masses or hemorrhage. Jain/white matter interface is normal. Brainstem appe ars normal. There is acute restricted diffusion along the left posterior temporal lobe cortex, small patches seen over the left parietal lobe cortex, and in the left frontal lobe near the vertex measuri ng liters. There is no associated edema or hemorrhage.. Small lacunar infarcts in the left nuria, righ t thalamus, and right hurtado radiata.. Normal intravascular flow voids are present. Skull and face: Calvarium has normal marrow signal. Orbits appear normal. Sinuses: Sinuses and mastoids are clear. IMPRESSION: 1. There are several small areas of acute cortical infarcts involving the left posterior temporal, an d parietal lobes. These appear to be discontinuous and are potentially related to embolic phenomenon rather than watershed infarcts or a single vessel disease. 2. There is no evidence of associated hemorrhage or edema. 3. Findings conveyed to the patient's nurse who will relay results to the telehealth provider traffic division commanding officer . Reviewed by: Evelyn Walters MD on 10/05/2022 9:11 PM PDT Approved by: Evelyn Walters MD on 10/05/2022 9:11 PM PDT Station ID: [id number]
[2022-10-05] MEDS ORDERED: ATORVASTATIN 40 MG TABLET PO STA (21:20)
[2022-10-05] MEDS ORDERED: ASPIRIN CHEW 81 MG TABLET PO STA (21:20)
[2022-10-05] MEDS ORDERED: LABETALOL 20 MG/4 ML SYRINGE IVP PRN (21:24)
--- NOTE | 2022-10-05 21:32 | PROVIDER PROGRESS NOTE ---
Blast Setter Note - Blast Setter Note Blast Setter Note: MRI brain results, discussed with radiologist: Several small areas of acute cortical infarcts involving left posterior temporal and parietal lobes. Suspected embolic phenomenon rather than watershed infarcts or single vessel disease. Lacunar infarcts. No evidence of hemorrhage or edema. Patient chart reviewed, several days of encephalopathy/recurrent episodes of confusion. CT head neg, however pt has been refusing MRI and considering AMA discharge. ASA, high dose statin, echo and carotid duplex ordered. Continue neurochecks, permissive HTN. PT/OT/STUDIO HAND. Discussed with RN.
[2022-10-06] MEDS: CALCIUM CARBONATE CHEW 500 MG TABLET PO SCH ×3 (00:01→10:30)
[2022-10-06 05:15] LABS: BASOPHILS % (AUTO) 0.1 %; HCT - HEMATOCRIT 35.8 % (42.0-52.0); HGB - HEMOGLOBIN 12.1 g/dL (14.0-18.0); LYMPHOCYTES # (AUTO) 0.7 10^3/uL (1.5-3.5); LYMPHOCYTES % (AUTO) 5.2 %; MEAN CORPUSCULAR HEMOGLOBIN 29.1 pg (27.0-31.0); MEAN CORPUSCULAR HGB CONC 33.8 g/dL (32.0-36.0); MEAN CORPUSCULAR VOLUME 86.1 fL (80.0-94.0); MEAN PLATELET VOLUME 10.5 fL (7.4-11.4); MONOCYTES # (AUTO) 0.3 10^3/uL (0.0-1.0); MONOCYTES % (AUTO) 2.1 %; NEUTROPHILS # (AUTO) 11.5 10^3/uL (1.5-6.6); NEUTROPHILS % (AUTO) 91.7 %; PLT - PLATELET COUNT 300 10^3/uL (130-450); RED BLOOD COUNT 4.16 10^6/uL (4.70-6.10); RED CELL DISTRIBUTION WIDTH 14.5 % (12.0-15.0); WHITE BLOOD COUNT 12.6 x10^3/uL (4.8-10.8)
[2022-10-06 05:23] LABS: CALCIUM, IONIZED 1.08 mmol/L (1.15-1.33); VBG PH 7.49 (7.31-7.41)
[2022-10-06 05:26] LABS: CALCIUM 8.2 mg/dL (8.5-10.3); CREATININE 0.9 mg/dL (0.6-1.2); MAGNESIUM 2.3 mg/dL (1.7-2.8); POTASSIUM 3.6 mmol/L (3.5-5.0)
[2022-10-06] MEDS ORDERED: POTASSIUM CHLORIDE 20 MEQ TABLET PO ONE ×2 (05:35→07:32)
[2022-10-06] MEDS: methylPREDNISolone SUCCINATE 125 MG/2 ML VIAL IVP SCH ×3 (06:48→21:31)
[2022-10-06] MEDS: ENOXAPARIN 40 MG/0.4 ML SYRINGE SUBQ SCH (08:21)
[2022-10-06] MEDS: guaiFENesin 600 MG TABLET PO SCH ×2 (08:22→20:47)
[2022-10-06] MEDS: SACCHAROMYCES BOULARDII 250 MG CAPSULE PO SCH ×2 (08:22→17:48)
[2022-10-06] MEDS: FAMOTIDINE 20 MG TABLET PO SCH ×2 (08:22→20:48)
[2022-10-06] MEDS: SODIUM CHLORIDE FLUSH 0.9% 10 ML SYRINGE IVP SCH ×3 (08:26→17:42)
[2022-10-06] MEDS: ASPIRIN EC 81 MG TABLET PO SCH (11:41)
[2022-10-06] MEDS ORDERED: CALCIUM CARBONATE CHEW 500 MG TABLET PO SCH (14:30)
[2022-10-06] MEDS: POTASSIUM CHLORIDE 20 MEQ TABLET PO SCH ×2 (15:03→17:48)
--- NOTE | 2022-10-06 15:37 | Ultrasound Report ---
PROCEDURE: Carotid Doppler Complete INDICATIONS: acute cva TECHNIQUE: Color and pulse Doppler interrogation was performed of both carotid systems, with image documentation and velocity measurements. COMPARISON: None. FINDINGS: Right side: Brachial blood pressure: 151/82 mm Hg. Common carotid artery peak systolic velocity: 68.9 cm/sec. Internal carotid artery peak systolic velocity: 72.9 cm/sec. Internal carotid artery end diastolic velocity: 18.8 cm/sec. External carotid artery peak systolic velocity: 74.6 cm/sec. ICA/CCA peak systolic ratio: 1.05 . Jain scale imaging description: There is hard plaque involving the right carotid bulb with no signif icant stenosis. There is mild internal carotid artery plaque without stenosis. Percent internal carotid artery stenosis: Minimal. Vertebral artery: Flow direction is antegrade. Left side: Brachial blood pressure: 145/82 mm Hg. Common carotid artery peak systolic velocity: 71.7 cm/sec. Internal carotid artery peak systolic velocity: 79.6 cm/sec. Internal carotid artery end diastolic velocity: 20.7 cm/sec. External carotid artery peak systolic velocity: 87.4 cm/sec. ICA/CCA peak systolic ratio: 1.1 . Jain scale imaging description: Heart carotid bulb plaque without significant stenosis. Mild less th an 50% internal carotid artery plaque. Percent internal carotid artery stenosis: Mild, less than 50%. Vertebral artery: Flow direction is antegrade. IMPRESSION: 1. In the right internal carotid artery, there is mild nonflow-limiting stenosis, less than 50% based on peak systolic velocity criteria. 2. In the left internal carotid artery, there is mild nonflow limiting stenosis, less than 50% based on peak systolic velocity criteria. 3. Antegrade blood flow within the right vertebral artery. 4. Antegrade blood flow within the left vertebral artery. The estimate of stenosis included in the report of the imaging study was calculated using the [facility]-end orsed standards of carotid artery stenosis. Reviewed by: Flo Cespedes MD on 10/06/2022 3:35 PM PDT Approved by: Flo Cespedes MD on 10/06/2022 3:35 PM PDT Station ID: [id number]
[2022-10-06] MEDS: MORPHINE 2 MG/ML CARPUJECT IVP PRN ×2 (19:58→22:54)
[2022-10-06] MEDS ORDERED: HALOPERIDOL 5 MG/ML VIAL IVP STA (20:30)
[2022-10-06] MEDS: cefTRIAXone 1 GM in SODIUM CHLORIDE 0.9% MINIBAG 100 ML IV SCH (20:49)
[2022-10-06] MEDS ORDERED: ATORVASTATIN 40 MG TABLET PO SCH (21:00)
--- NOTE | 2022-10-06 21:05 | PROVIDER PROGRESS NOTE ---
Subjective - Subjective Pt reports feeling: Worse (The family is at bedside (, son and daughter) and they report he is confused up & down all day.) Objective - Vital Signs/Intake & Output Reviewed Vital Signs: Yes Vital Signs: Vital Signs Temp Pulse Resp BP Pulse Ox O2 Flow Rate 10/06/22 19:00 36.6 C 87 39 H 140/102 H 95 35 10/06/22 18:00 81 31 H 154/95 H 100 Intake & Output: Intake & Output 10/03/22 10/04/22 10/05/22 10/06/22 23:59 23:59 23:59 23:59 Intake Total 950 1540 1720 1510 Output Total 250 475 290 Balance 950 1290 1245 1220 - Objective General Appearance: positive: Mild distress (from frustration/anxiety, not resp distress), Other (Disheveled) Eyes Bilateral: positive: Normal inspection ENT: positive: ENT inspection nml, No signs of dehydration Neck: positive: Nml inspection, No JVD Respiratory: positive: Rales (R mid lung field and both bases), Other (wearing O2 via Oximizer at 37 L/min) Cardiovascular: positive: Regular rate & rhythm, No murmur Abdomen: positive: Non-tender, No distention Skin: positive: Warm, Dry Extremities: positive: Non-tender, No pedal edema Neurologic/Psychiatric: positive: Motor nml, Disoriented to person, Disoriented to place - Lab Results Fish Bones: 10/06/22 04:46 10/06/22 12:02 Other Labs: Lab Results x24hrs 10/06/22 10/06/22 10/06/22 Range/Units 12:02 04:46 04:46 WBC (4.8-10.8) x10^3/uL RBC (4.70-6.10) 10^6/uL Hgb (14.0-18.0) g/dL Hct (42.0-52.0) % MCV (80.0-94.0) fL MCH (27.0-31.0) pg MCHC (32.0-36.0) g/dL RDW (12.0-15.0) % Plt Count (130-450) 10^3/uL MPV (7.4-11.4) fL Neut # (Auto) (1.5-6.6) 10^3/uL Lymph # (Auto) (1.5-3.5) 10^3/uL Morris # (Auto) (0.0-1.0) 10^3/uL Eos # (Auto) (0.0-0.7) 10^3/uL Baso # (Auto) (0.0-0.1) 10^3/uL Absolute Nucleated RBC x10^3/uL Nucleated RBC % /100WBC VBG pH 7.490 H (7.31-7.41) Ionized Calcium 1.08 L (1.15-1.33) mmol/L Sodium (135-145) mmol/L Potassium 3.5 (3.5-5.0) mmol/L Chloride (101-111) mmol/L Carbon Dioxide (21-32) mmol/L Anion Gap (6-13) BUN (6-20) mg/dL Creatinine (0.6-1.2) mg/dL Estimated GFR (MDRD) (>89) Glucose (70-100) mg/dL Calcium (8.5-10.3) mg/dL Phosphorus 4.0 (2.5-4.6) mg/dL Magnesium (1.7-2.8) mg/dL Nasal Screen MRSA (PCR) (NEGATIVE) 10/06/22 10/06/22 10/05/22 Range/Units 04:46 04:46 19:45 WBC 12.6 H (4.8-10.8) x10^3/uL RBC 4.16 L (4.70-6.10) 10^6/uL Hgb 12.1 L (14.0-18.0) g/dL Hct 35.8 L (42.0-52.0) % MCV 86.1 (80.0-94.0) fL MCH 29.1 (27.0-31.0) pg MCHC 33.8 (32.0-36.0) g/dL RDW 14.5 (12.0-15.0) % Plt Count 300 (130-450) 10^3/uL MPV 10.5 (7.4-11.4) fL Neut # (Auto) 11.5 H (1.5-6.6) 10^3/uL Lymph # (Auto) 0.7 L (1.5-3.5) 10^3/uL Morris # (Auto) 0.3 (0.0-1.0) 10^3/uL Eos # (Auto) 0.0 (0.0-0.7) 10^3/uL Baso # (Auto) 0.0 (0.0-0.1) 10^3/uL Absolute Nucleated RBC 0.00 x10^3/uL Nucleated RBC % 0.0 /100WBC VBG pH (7.31-7.41) Ionized Calcium (1.15-1.33) mmol/L Sodium 140 (135-145) mmol/L Potassium 3.6 (3.5-5.0) mmol/L Chloride 106 (101-111) mmol/L Carbon Dioxide 24 (21-32) mmol/L Anion Gap 10.0 (6-13) BUN 28 H (6-20) mg/dL Creatinine 0.9 (0.6-1.2) mg/dL Estimated GFR (MDRD) 81 L (>89) Glucose 176 H (70-100) mg/dL Calcium 8.2 L (8.5-10.3) mg/dL Phosphorus (2.5-4.6) mg/dL Magnesium 2.3 (1.7-2.8) mg/dL Nasal Screen MRSA (PCR) NEGATIVE (NEGATIVE) - Diagnostic Imaging Diagnostic Imaging Results: positive: Final report reviewed Sepsis Event Note (H) - Evaluation Current Stage of Sepsis: Sepsis Possible source of Sepsis: positive: Pulmonary - Sepsis Criteria Sepsis Criteria: Recorded Heart Rate greater than 90 bpm, Recorded Respiratory Rate greater than 20, WBC count greater than 12,000 or less than 4000 Assessment/Plan - Problem List (1) Acute embolic stroke Impression: This patient has had 3-4 episodes of confusion this admission, lasting < 1 hour which were felt to be caused by hypoxia. The last one was evening of yesterday 10/05, he was disoriented to place and time, not person, had word finding difficulty and abnormal depth perception. His CT head showed nothing acute. Bra in MRI was done last night and that showed multiple emboli in the cortex of his L posterior temporal and parietal lobes and the distribution suggests a shower of emboli, since they are not in one vascular distribution. The Telemedicine provider aordered a dose of aspirin and statin. Today is is confused all day. He cannot remember what was just old him. Plan: Continue daily baby aspirin and Lipitor 80 mg qpm Obtain extra Echo images, since his complete Echo was done yesterday w/out bubble study, before the abnormal neuro exam. Extra Echo needed to eval for a PFO. Remain in the ICU on telemetry to watch for Afib. Cont Neuro checks q4h Carotid Doppler is to be done today Transfer to a larger facility where he can have a ANIBAL, and Neurology consultants. I updated the family about the brain MRI findings and this entire plan. I have spoken with Neurology from today, who agreed he needs a stroke W/U but asked that he go elsewhere, to keep beds open for more critical cases. I then spoke to Neurology from [facility] who agreed that he needs to be transferred to a larger facilitu, but wanted Pulmonology/Stacking Machine Operator to accept the case due to this patient's worsening respiratory status today (see #2). (2) Acute respiratory failure with hypoxia Impression: This was due to his community-acquired pneumonia in a patient with underlying pulmonary fibrosis. He usually is not on home O2. He has needed escalating amounts of supplemental O2 4L>> 6 L yesterday. Yesterday with just walking to the bathroom, he desaturated to 65% on 4 L O2, and knees wobbled and he was near-syncopal. Needed to be helped back to bed by his RN and son, who was at bedside. He needed to have suppl O2 turned up to 15L temporarily to recover his O2 sats back up. And since he was transferred to ICU yesterday evening, he needs 37 L/min, to maintain sats >89%. He still desaturates to 70% with just sitting up and standing and moving. Plan: Remain in the ICU ABG ordered, pt refused it. Continue with supplemental O2 keeping sats greater than 88%. He is now in ICU and on oximizer with heated high flow. He may need BIPAP. I discussed this possibility and also vent support temporarily if needed, with him and , son and daughter in room today (as he is currently not in a situation where he is in a vegetative state, where his Adv Directive states no ventilator desired). Cont order to increase supplemental O2 to higher settings with any activity Cont iv Solu-Medrol given the history of pulmonary fibrosis. Cont Mucinex for expectortation Cont empiric antibx I plan to have him transferred to a larger facility where travel specialist and Stacking Machine Operator are available. This plan was discussed with pt and family also. I contacted and spoke to their Transfer director. I then contacted [facility] and spoke to their Transfer director, then a Neurologist, then an Stacking Machine Operator, and went over the entire case, labs, VS and images and that doctor accepted the patient. We discussed that he may need BIPAP to assure a stable transfer. COBRA forms were completed and we are awaiting an ICU bed at [facility]. (3) Acute exacerbation of idiopathic pulmonary fibrosis Assessment/Plan: He did see an outpatient rn appeals once for this but has not seen that provider in years Rechecked CXR >> Worsening reticular pattern was reported. He been started on high dose iv steroids. His Echo showed normal RV size and RV contractility and his PA pressure is moderately elevated at 56 mmHg Plan: Continue iv Solu-Medrol at high dose I added antacid therapy BID, for stress ulcer prophylaxis, which can risk of acid aspiration. I plan to have him transferred for Pulmonary/Stacking Machine Operator management (4) Community acquired pneumonia Qualifiers: Laterality: right Lung location: lower lobe of lung Qualified Code(s): J18.9 - Pneumonia, unspecified organism Assessment/Plan: Initial CXR showed the RLL infiltrate. Rechecked CXR >> Worsening reticular pattern was reported. Sputum Gram stain shows many WBCs along with gram-positive cocci. There is growth in the spt cx, yet identified. Blood cultures are negative to date. Plan: Patient is continuing to be on empiric IV Rocephin and IV azithromycin. Awaiting sputum culture results to tailor antibiotic (5) Acute encephalopathy Assessment/Plan: He had generalized confusion at admission, suspected to be secondary to infectious process and from hypoxia. CT of head without contrast revealed no acute abnormalities. He declined undergoing a brain MRI. Several days ago he wanted to sign out AMA. Yesterday and today he is cooperative, and understands why he is here and wants to get better. Yesterday the neuro deficit was witnessed, he had brain CT and brain MRI Plan: As in #1 (6) Sepsis Qualifiers: Acute respiratory failure type: with hypoxia Severe sepsis shock status: without septic shock Assessment/Plan: RESOLVED He met criteria with tachycardia, increased respiratory rate, new hypoxia and leukocytosis. Secondary to community-acquired pneumonia CRITICAL CARE TIME SPENT: 80 min (reviewing VS, labs, imaging, evaluating pt, adjusting meds, updating family, speaking with Transfer centers and Neurologists and Stacking Machine Operator, completing COBRA forms).
[2022-10-06] MEDS ORDERED: BUPRENORPHINE 0.3 MG/ML VIAL ONE ×2 (23:00→23:07)
[2022-10-06] MEDS ORDERED: BUMETANIDE 1 MG/4 ML VIAL IVP STA (23:05)
--- NOTE | 2022-10-06 23:10 | PROVIDER PROGRESS NOTE ---
Hospitalist Cross-cover Note - Cross-Cover Note Cross-Cover Note: Called by RN stating "Patient deteriorating, family not okay with transfer tonight via ambulance that will take 3 hours, not okay with flight transfer, patient is breathing in the 40's, on max high flow of 60liters, 100 percent, completely delusional, hr 114, resp 44, sats 69, lungs wet," Chart and EMR reviewed, Bumex 2 mg ivp x one dose, Patient is DNR, spoke at length with and she is at bedside, she does not want any heroics as patient is DNR, will try aggressive medical management but if not improving then may consider comfort care pathway and let Mr Snyder with peace, respect and dignity as per his wishes, as looking at the chart and reviewing events over last 48 hours clearly he has been declining over last 2 days. I have spent over 35 mins reviewing, talking with RN multiple times, and discussed with . Please call us back with any questions or updates. Also discussed with Halle Fabian
[2022-10-07] MEDS: SODIUM CHLORIDE FLUSH 0.9% 10 ML SYRINGE IVP SCH ×2 (01:57→09:06)
[2022-10-07] MEDS: methylPREDNISolone SUCCINATE 125 MG/2 ML VIAL IVP SCH (06:30)
[2022-10-07] MEDS: SACCHAROMYCES BOULARDII 250 MG CAPSULE PO SCH (08:23)
--- NOTE | 2022-10-07 08:30 | XRAY Report ---
PROCEDURE: Chest 1 View X-Ray INDICATIONS: Worsening hypoxia TECHNIQUE: One view of the chest was acquired. COMPARISON: 10/05/2022 FINDINGS: Surgical changes and devices: None. Lungs and pleura: Diffuse airspace opacities, right greater than left, slightly progressed from prio r. Mediastinum: Mediastinal contours appear normal. Heart size is normal. Bones and chest wall: No suspicious bony lesions. Overlying soft tissues appear unremarkable. IMPRESSION: Slightly progressed diffuse airspace opacities. Differential includes acute lung injury, pulmonary ed mini or severe infection. Reviewed by: Srinivas Heart on 10/07/2022 8:29 AM PDT Approved by: Srinivas Heart on 10/07/2022 8:29 AM PDT Station ID: [id number]
[2022-10-07] MEDS ORDERED: FUROSEMIDE 20 MG/2 ML VIAL IVP SCH ×2 (08:36→14:00)
[2022-10-07 08:45] LABS: BASOPHILS % (AUTO) 0.2 %; HCT - HEMATOCRIT 35.1 % (42.0-52.0); LYMPHOCYTES # (AUTO) 0.7 10^3/uL (1.5-3.5); LYMPHOCYTES % (AUTO) 3.5 %; MEAN CORPUSCULAR HEMOGLOBIN 29.5 pg (27.0-31.0); MEAN CORPUSCULAR HGB CONC 34.2 g/dL (32.0-36.0); MEAN CORPUSCULAR VOLUME 86.2 fL (80.0-94.0); MEAN PLATELET VOLUME 10.2 fL (7.4-11.4); MONOCYTES # (AUTO) 1.3 10^3/uL (0.0-1.0); MONOCYTES % (AUTO) 6.5 %; NEUTROPHILS # (AUTO) 17.2 10^3/uL (1.5-6.6); NEUTROPHILS % (AUTO) 88.8 %; PLT - PLATELET COUNT 274 10^3/uL (130-450); RED BLOOD COUNT 4.07 10^6/uL (4.70-6.10); RED CELL DISTRIBUTION WIDTH 14.8 % (12.0-15.0); WHITE BLOOD COUNT 19.4 x10^3/uL (4.8-10.8)
[2022-10-07] MEDS: ENOXAPARIN 40 MG/0.4 ML SYRINGE SUBQ SCH (09:07)
[2022-10-07 09:08] LABS: ALBUMIN 2.8 g/dL (3.2-5.5); ALBUMIN/GLOBULIN RATIO 0.7 (1.0-2.2); BILIRUBIN,TOTAL 0.9 mg/dL (0.2-1.0); CREATININE 1.2 mg/dL (0.6-1.2); MAGNESIUM 2.7 mg/dL (1.7-2.8); POTASSIUM 4.4 mmol/L (3.5-5.0); TOTAL PROTEIN 6.6 g/dL (6.7-8.2)
[2022-10-07] MEDS: ASPIRIN EC 81 MG TABLET PO SCH (11:03)
[2022-10-07] MEDS: FAMOTIDINE 20 MG TABLET PO SCH (11:03)
[2022-10-07] MEDS: guaiFENesin 600 MG TABLET PO SCH (11:04)
[2022-10-07] MEDS ORDERED: ONDANSETRON ODT 4 MG TABLET TL PRN (14:59)
[2022-10-07] MEDS ORDERED: haloperidoL 1 MG TABLET PO PRN ×2 (14:59)
[2022-10-07] MEDS ORDERED: CARBOXYMETHYLCELLULOSE OPHTH DROPS EACHEYE PRN (14:59)
[2022-10-07] MEDS ORDERED: LORazepam 1 MG TABLET PO PRN (14:59)
[2022-10-07] MEDS ORDERED: ACETAMINOPHEN 160 MG/5 ML SUSP UDC PO PRN (14:59)
[2022-10-07] MEDS: MORPHINE 2 MG/ML CARPUJECT IVP PRN ×3 (16:04→20:01)
[2022-10-07] MEDS ORDERED: MORPHINE 2 MG/ML CARPUJECT IVP PRN (16:20)
[2022-10-07] MEDS: LORazepam 2 MG/ML VIAL IVP PRN ×2 (16:50→20:01)
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
[2022-10-07] MEDS: HALOPERIDOL 5 MG/ML VIAL IVP PRN ×2 (17:28→22:25)
[2022-10-07] MEDS: SODIUM CHLORIDE FLUSH 0.9% 10 ML SYRINGE IVP PRN (20:01)
[2022-10-07] MEDS: MORPHINE SOL 10 MG/0.5 ML ORAL SYRINGE PO PRN ×2 (20:52→22:42)
[2022-10-07] MEDS: GLYCOPYRROLATE 1 MG/5 ML VIAL SUBQ PRN (20:52)
[2022-10-08] MEDS: MORPHINE SOL 10 MG/0.5 ML ORAL SYRINGE PO PRN ×2 (01:41→03:36)
[2022-10-08] MEDS: LORazepam 2 MG/ML VIAL IVP PRN ×2 (01:57→15:48)
[2022-10-08] MEDS: SODIUM CHLORIDE FLUSH 0.9% 10 ML SYRINGE IVP PRN (03:16)
[2022-10-08] MEDS: HALOPERIDOL 5 MG/ML VIAL IVP PRN (03:31)
[2022-10-08] MEDS: MORPHINE 2 MG/ML CARPUJECT IVP PRN ×3 (04:26→17:37)
[2022-10-08] MEDS: GLYCOPYRROLATE 1 MG/5 ML VIAL SUBQ PRN ×2 (12:16→16:25)
--- NOTE | 2022-10-08 18:11 | PROVIDER PROGRESS NOTE ---
Assessment/Plan - Problem List (1) Acute respiratory failure with hypoxia Assessment/Plan: The patient did not want to wear BiPAP, so he was put back on heated high flow. He then said he is not comfortable wearing heated high flow with large cannula in his nares. The patient wants to go on standard nasal cannula for suppl O2. He is saturating 80 to 85% on 6 to 10 L O2 by nasal cannula. Plan: Continue with comfort measures including meds for air hunger, morphine or roxanol, etc. The patient is imminently dying since he is no longer getting IV steroids, IV antibiotics, or diuretics, and also no aspirin for the acute CVA. I updated the at the bedside (2) Comfort measures only status Assessment/Plan: Yesterday the and patient told RT and the patient's nurse that they did not want him transferred, did not want ongoing aggressive care, and asked to cancel the transfer. He wants no intubation or vent. support. I met with the patient and several more times after that. I repeated that I recommend him being transferred and having specialists to try to get him through this Pulm fibrosis exacerbation and to have Pulmonary input and Neurology input for his temporal montalvo. The did not want to proceed with the transfer despite my urging. I offered that the patient therefore have comfort measures because of his respiratory distress and air hunger. The and the patient also then agreed to focus on comfort care. The transfer to [facility] ICU was cancelled. Plan: Continue comfort care orders, including IV morphine, oral Roxanol, IV Haldol, eyedrops and other meds for comfort. I discussed with the patient and the where he would best like to with dignity and he wants to go home. A Hospice consult for care after discharge was placed. Hospice can take him on as a patient on Monday (today is Sat). Patient may not survive until Monday. I will transfer him out of ICU status to general medicine status today. - Current Meds Current Meds: Current Medications Generic Name Dose Route Start Last Admin Trade Name Freq PRN Reason Stop Dose Admin Glycopyrrolate 0.2 mg 10/07/22 14:59 10/08/22 16:25 Glycopyrrolate 1 Mg/5 Ml Vial SUBQ 0.2 mg Q4H PRN Administration Excessive secretions Haloperidol 1 mg 10/07/22 17:18 10/08/22 03:31 Haloperidol 5 Mg/Ml Vial IVP 1 mg Q6H PRN Administration Agitation Lorazepam 1 mg 10/07/22 08:34 10/08/22 15:48 Lorazepam 2 Mg/Ml Vial IVP 1 mg Q4H PRN Administration Agitation Morphine Sulfate 10 mg 10/07/22 14:59 10/08/22 03:36 Morphine Agnes 10 Mg/0.5 Ml Oral Syringe PO 10 mg Q2HR PRN Administration Dyspnea Morphine Sulfate 3 mg 10/07/22 17:20 10/08/22 17:37 Morphine 2 Mg/Ml Carpuject IVP 3 mg Q1HR PRN Administration Dyspnea Sodium Chloride 10 ml 10/01/22 00:17 10/08/22 03:16 Sodium Chloride Flush 0.9% 10 Ml Syringe IVP 10 ml PRN PRN Administration NEEDED PER PROVIDER ORDERS Sodium Chloride 2 sprays 10/02/22 12:01 10/05/22 12:14 Sodium Chloride 0.65% Nasal [place] SOL 1 spr Q4HR PRN Administration Nasal Congestion - Lab Result Fish Bone Diagrams: 10/07/22 08:35 10/07/22 08:35 - Additional Planning My Orders: My Active Orders 10/07/22 17:18 Haloperidol Inj [Haldol Inj] 1 mg IVP Q6H PRN 10/07/22 17:20 Morphine Inj (Carpuject) [Morphine (Carpuject)] 3 mg IVP Q1HR PRN Subjective - Subjective Nursing Reports: Other (Resp rate elevated, saturating 83% on suppl O2) Objective Vital Signs: Vital Signs - 24 hr 10/07/22 10/08/22 10/08/22 21:00 07:38 07:50 Temperature 37.2 C Heart Rate [ 88 Monitoring electrodes] Respiratory 28 H Rate Blood Pressure 107/64 [Right Brachial artery] O2 Saturation 86 L If not protocol 13 10 15 : Oxygen Flow, liters/minute 10/08/22 12:02 Temperature Heart Rate [ Monitoring electrodes] Respiratory 30 H Rate Blood Pressure [Right Brachial artery] O2 Saturation 63 L If not protocol 9 : Oxygen Flow, liters/minute Oxygen O2 Source Oxymizer I&O (Last 24 Hrs): Intake and Output Totals x24h 10/06/22 10/07/22 10/08/22 23:59 23:59 23:59 Intake Total 1610 1050 0 Output Total 390 2550 Balance 1220 -1500 0 General: Other (sedated) HEENT: Mucous membr. moist/pink Neuro: Other (sedated) Respiratory: Other (He is tachypneic, RR 40. Upper airway gurgling is heard.) - Results Results: Laboratory Results WBC 19.4 x10^3/uL (4.8-10.8) H 10/07/22 08:35 RBC 4.07 10^6/uL (4.70-6.10) L 10/07/22 08:35 Hgb 12.0 g/dL (14.0-18.0) L 10/07/22 08:35 Hct 35.1 % (42.0-52.0) L 10/07/22 08:35 MCV 86.2 fL (80.0-94.0) 10/07/22 08:35 MCH 29.5 pg (27.0-31.0) 10/07/22 08:35 MCHC 34.2 g/dL (32.0-36.0) 10/07/22 08:35 RDW 14.8 % (12.0-15.0) 10/07/22 08:35 Plt Count 274 10^3/uL (130-450) 10/07/22 08:35 MPV 10.2 fL (7.4-11.4) 10/07/22 08:35 Neut # (Auto) 17.2 10^3/uL (1.5-6.6) H 10/07/22 08:35 Lymph # (Auto) 0.7 10^3/uL (1.5-3.5) L 10/07/22 08:35 [place]ton # (Auto) 1.3 10^3/uL (0.0-1.0) H 10/07/22 08:35 Eos # (Auto) 0.0 10^3/uL (0.0-0.7) 10/07/22 08:35 Baso # (Auto) 0.0 10^3/uL (0.0-0.1) 10/07/22 08:35 Absolute Nucleated RBC 0.00 x10^3/uL 10/07/22 08:35 Total Counted 100 10/03/22 05:25 Band Neuts % (Manual) 1 % (0-10) 10/03/22 05:25 Abnorm Lymph % (Manual) 0 % 10/03/22 05:25 Nucleated RBC % 0.0 /100WBC 10/07/22 08:35 Neutrophils # (Manual) 12.1 10^3/uL (1.5-6.6) H 10/03/22 05:25 Lymphocytes # (Manual) 2.0 10^3/uL (1.5-3.5) 10/03/22 05:25 Monocytes # (Manual) 2.3 10^3/uL (0.0-1.0) H 10/03/22 05:25 Eosinophils # (Manual) 0.0 10^3/uL (0-0.7) 10/03/22 05:25 Basophils # (Manual) 0.0 10^3/uL (0-0.1) 10/03/22 05:25 Differential Comment MANUAL DIFFERENTIAL 10/03/22 05:25 WBC Morphology NORMAL APPEARANCE (NORMAL) 10/03/22 05:25 Platelet Estimate NORMAL (130-450,000) (NORMAL) 10/03/22 05:25 Platelet Morphology NORMAL APPEARANCE (NORMAL) 10/03/22 05:25 RBC Morph Micro Appear NORMAL APPEARANCE (NORMAL) 10/03/22 05:25 Bld Gas Analysis Time 1745 10/05/22 17:30 Sample Site RIGHT RADIAL 10/05/22 17:30 ABG pH 7.49 (7.35-7.45) H 10/05/22 17:30 ABG pCO2 33 mmHg (34-45) L 10/05/22 17:30 ABG pO2 67 mmHg (80-100) L 10/05/22 17:30 ABG HCO3 24.8 mmol/L (22.0-26.0) 10/05/22 17:30 ABG Total CO2 25.8 MMOL/L (21.0-29.0) 10/05/22 17:30 ABG O2 Saturation 94 % (94-98) 10/05/22 17:30 ABG Base Excess 2.1 mmol/L (-2.0-3.0) 10/05/22 17:30 Tonio Test POSITIVE 10/05/22 17:30 VBG pH 7.490 (7.31-7.41) H 10/06/22 04:46 Ionized Calcium 1.08 mmol/L (1.15-1.33) L 10/06/22 04:46 O2 Delivery Device OXYMIZER 10/05/22 17:30 O2 Liters/Min 10.00 LPM 10/05/22 17:30 Sodium 144 mmol/L (135-145) 10/07/22 08:35 Potassium 4.4 mmol/L (3.5-5.0) 10/07/22 08:35 Chloride 108 mmol/L (101-111) 10/07/22 08:35 Carbon Dioxide 26 mmol/L (21-32) 10/07/22 08:35 Anion Gap 10.0 (6-13) 10/07/22 08:35 BUN 44 mg/dL (6-20) H 10/07/22 08:35 Creatinine 1.2 mg/dL (0.6-1.2) 10/07/22 08:35 Estimated GFR (MDRD) 58 (>89) L 10/07/22 08:35 Glucose 172 mg/dL (70-100) H 10/07/22 08:35 POC Whole Bld Glucose 158 mg/dL (70 - 100) H 10/02/22 13:55 Lactic Acid 0.9 mmol/L (0.5-2.2) 09/30/22 21:00 Calcium 8.0 mg/dL (8.5-10.3) L 10/07/22 08:35 Ionized Calcium YES 10/05/22 05:35 Phosphorus 4.0 mg/dL (2.5-4.6) 10/06/22 04:46 Magnesium 2.7 mg/dL (1.7-2.8) 10/07/22 08:35 Total Bilirubin 0.9 mg/dL (0.2-1.0) 10/07/22 08:35 AST 86 IU/L (10-42) H 10/07/22 08:35 ALT 97 IU/L (10-60) H 10/07/22 08:35 Alkaline Phosphatase 117 IU/L (42-121) 10/07/22 08:35 Total Protein 6.6 g/dL (6.7-8.2) L 10/07/22 08:35 Albumin 2.8 g/dL (3.2-5.5) L 10/07/22 08:35 Globulin 3.8 g/dL (2.1-4.2) 10/07/22 08:35 Albumin/Globulin Ratio 0.7 (1.0-2.2) L 10/07/22 08:35 Urine Color YELLOW 09/30/22 23:07 Urine Clarity CLEAR (CLEAR) 09/30/22 23:07 Urine pH 5.5 PH (5.0-7.5) 09/30/22 23:07 Ur Specific [place] 1.020 (1.002-1.030) 09/30/22 23:07 Urine Protein 30 mg/dL (NEGATIVE) H 09/30/22 23:07 Urine Glucose (UA) NEGATIVE mg/dL (NEGATIVE) 09/30/22 23:07 Urine Ketones TRACE mg/dL (NEGATIVE) 09/30/22 23:07 Urine Occult Blood NEGATIVE (NEGATIVE) 09/30/22 23:07 Urine Nitrite NEGATIVE (NEGATIVE) 09/30/22 23:07 Urine Bilirubin NEGATIVE (NEGATIVE) 09/30/22 23:07 Urine Urobilinogen 1 (NORMAL) E.U./dL (NORMAL) 09/30/22 23:07 Ur Leukocyte Esterase NEGATIVE (NEGATIVE) 09/30/22 23:07 Urine RBC 0-5 /HPF (0-5) 09/30/22 23:07 Urine WBC 0-3 /HPF (0-3) 09/30/22 23:07 Ur Squamous Epith Cells RARE Squamous (<= Few) 09/30/22 23:07 Urine Bacteria Rare /HPF (None Seen) 09/30/22 23:07 Urine Mucus Few Strands 09/30/22 23:07 Urine Culture Comments NOT INDICATED 09/30/22 23:07 Nasal Adenovirus (PCR) NOT DETECTED 09/30/22 21:00 Nasal B. parapertussis DNA (PCR) NOT DETECTED 09/30/22 21:00 Nasal Coronavir 229E PCR NOT DETECTED 09/30/22 21:00 Nasal Coronavir HKU1 PCR NOT DETECTED 09/30/22 21:00 Nasal Coronavir NL63 PCR NOT DETECTED 09/30/22 21:00 Nasal Coronavir OC43 PCR NOT DETECTED 09/30/22 21:00 Nasal Enterovir/Rhinovir PCR NOT DETECTED 09/30/22 21:00 Nasal Influenza B PCR NOT DETECTED 09/30/22 21:00 Nasal Influenza A PCR NOT DETECTED 09/30/22 21:00 Nasal Parainfluen 1 PCR NOT DETECTED 09/30/22 21:00 Nasal Parainfluen 2 PCR NOT DETECTED 09/30/22 21:00 Nasal Parainfluen 3 PCR NOT DETECTED 09/30/22 21:00 Nasal Parainfluen 4 PCR NOT DETECTED 09/30/22 21:00 Nasal RSV (PCR) NOT DETECTED 09/30/22 21:00 Nasal Screen MRSA (PCR) NEGATIVE (NEGATIVE) 10/05/22 19:45 Nasal B.pertussis DNA PCR NOT DETECTED 09/30/22 21:00 Nasal C.pneumoniae (PCR) NOT DETECTED 09/30/22 21:00 Sol Human Metapneumo PCR NOT DETECTED 09/30/22 21:00 Nasal M.pneumoniae (PCR) NOT DETECTED 09/30/22 21:00 Nasal SARS-CoV-2 (PCR) NOT DETECTED 09/30/22 21:00 Sepsis Event Note (H) - Evaluation Current Stage of Sepsis: Sepsis Possible source of Sepsis: positive: Pulmonary - Sepsis Criteria Sepsis Criteria: Recorded Heart Rate greater than 90 bpm, Recorded Respiratory Rate greater than 20, WBC count greater than 12,000 or less than 4000
[2022-10-09] MEDS: MORPHINE 2 MG/ML CARPUJECT IVP PRN ×4 (05:54→18:54)
[2022-10-09] MEDS: MORPHINE SOL 10 MG/0.5 ML ORAL SYRINGE PO PRN ×3 (09:30→18:16)
[2022-10-09] MEDS: LORazepam 2 MG/ML VIAL IVP PRN ×2 (09:46→16:05)
[2022-10-09 09:57] VITALS: BP 135/80
--- NOTE | 2022-10-09 18:33 | PROVIDER PROGRESS NOTE ---
Assessment/Plan - Problem List (1) Acute respiratory failure with hypoxia Assessment/Plan: The patient did not want to wear BiPAP, so he was put back on heated high flow. He then said he is not comfortable wearing heated high flow with large cannula in his nares. The patient wanted to go on standard nasal cannula for suppl O2 on 10/07. On 10/08, he was sedated from Morphine being used for dyspnea Today he is saturating 65 to 83% on suppl O2 by nasal cannula. He is sedated getting prn Morphine, prn Roxanol and prn Ativan Plan: Continue with comfort measures including meds for air hunger, morphine or ro xanol, etc. The patient is imminently dying since he is no longer getting IV steroids, IV antibiotics, or diuretics, and also no aspirin for the acute CVA. I updated the and step son at the bedside today (2) Comfort measures only status Assessment/Plan: On 10/07 the and patient told RT and the patient's nurse that they did not want him transferred, did not want ongoing aggressive care, and asked to cancel the transfer. He wants no intubation or vent. support. I met with the patient and several more times after that. I repeated that I recommend him being transferred and having specialists to try to get him through this Pulm fibrosis exacerbation and to have Pulmonary input and Neurology input for his temporal montalvo. The did not want to proceed with the transfer despite my urging. I offered that the patient therefore have comfo rt measures because of his respiratory distress and air hunger. The and the patient also then agreed to focus on comfort care. The transfer to [facility] ICU was cancelled. Plan: Continue comfort care orders, including IV morphine, oral Roxanol, IV Haldol, eyedrops and other meds for comfort. On 10/07, I discussed with the patient and the where he would best like to with dignity and he wanted to go home. A Hospice consult for care after discharge was placed. Hospice can take him on as a patient on Monday at 1630(today is Sun). Patient may not survive until Monday afternoon. - Current Meds Current Meds: Current Medications Generic Name Dose Route Start Last Admin Trade Name Freq PRN Reason Stop Dose Admin Glycopyrrolate 0.2 mg 10/07/22 14:59 10/08/22 16:25 Glycopyrrolate 1 Mg/5 Ml Vial SUBQ 0.2 mg Q4H PRN Administration Excessive secretions Haloperidol 1 mg 10/07/22 17:18 10/08/22 03:31 Haloperidol 5 Mg/Ml Vial IVP 1 mg Q6H PRN Administration Agitation Lorazepam 1 mg 10/07/22 08:34 10/09/22 16:05 Lorazepam 2 Mg/Ml Vial IVP 1 mg Q4H PRN Administration Agitation Morphine Sulfate 10 mg 10/07/22 14:59 10/09/22 18:16 Morphine Agnes 10 Mg/0.5 Ml Oral Syringe PO 10 mg Q2HR PRN Administration Moderate Pain (Level 4-6) Morphine Sulfate 10 mg 10/07/22 14:59 10/08/22 03:36 Morphine Agnes 10 Mg/0.5 Ml Oral Syringe PO 10 mg Q2HR PRN Administration Dyspnea Morphine Sulfate 3 mg 10/07/22 17:20 10/09/22 15:30 Morphine 2 Mg/Ml Carpuject IVP 3 mg Q1HR PRN Administration Dyspnea Sodium Chloride 10 ml 10/01/22 00:17 10/08/22 03:16 Sodium Chloride Flush 0.9% 10 Ml Syringe IVP 10 ml PRN PRN Administration NEEDED PER PROVIDER ORDERS Sodium Chloride 2 sprays 10/02/22 12:01 10/05/22 12:14 Sodium Chloride 0.65% Nasal [place] SOL 1 spr Q4HR PRN Administration Nasal Congestion - Lab Result Fish Bone Diagrams: 10/07/22 08:35 10/07/22 08:35 Objective Vital Signs: Vital Signs - 24 hr 10/08/22 10/09/22 10/09/22 19:30 08:00 09:53 Respiratory 33 H Rate Blood Pressure 135/80 H [Right Brachial artery] O2 Saturation 79 L 63 L If not protocol 9 5 5 : Oxygen Flow, liters/minute Oxygen O2 Source Oxymizer I&O (Last 24 Hrs): Intake and Output Totals x24h 10/07/22 10/08/22 10/09/22 23:59 23:59 23:59 Intake Total 1050 0 Output Total 2550 Balance -1500 0 General: Other (sedated) HEENT: Mucous membr. moist/pink, Other (wearing O2 per n.c.) Neuro: Other (Sedated) Cardiovascular: Regular rate Respiratory: Other (Upper airway sounds, RR is 28) Abdomen: Soft Extremities: No clubbing, No edema - Results Results: Laboratory Results WBC 19.4 x10^3/uL (4.8-10.8) H 10/07/22 08:35 RBC 4.07 10^6/uL (4.70-6.10) L 10/07/22 08:35 Hgb 12.0 g/dL (14.0-18.0) L 10/07/22 08:35 Hct 35.1 % (42.0-52.0) L 10/07/22 08:35 MCV 86.2 fL (80.0-94.0) 10/07/22 08:35 MCH 29.5 pg (27.0-31.0) 10/07/22 08:35 MCHC 34.2 g/dL (32.0-36.0) 10/07/22 08:35 RDW 14.8 % (12.0-15.0) 10/07/22 08:35 Plt Count 274 10^3/uL (130-450) 10/07/22 08:35 MPV 10.2 fL (7.4-11.4) 10/07/22 08:35 Neut # (Auto) 17.2 10^3/uL (1.5-6.6) H 10/07/22 08:35 Lymph # (Auto) 0.7 10^3/uL (1.5-3.5) L 10/07/22 08:35 [place] # (Auto) 1.3 10^3/uL (0.0-1.0) H 10/07/22 08:35 Eos # (Auto) 0.0 10^3/uL (0.0-0.7) 10/07/22 08:35 Baso # (Auto) 0.0 10^3/uL (0.0-0.1) 10/07/22 08:35 Absolute Nucleated RBC 0.00 x10^3/uL 10/07/22 08:35 Total Counted 100 10/03/22 05:25 Band Neuts % (Manual) 1 % (0-10) 10/03/22 05:25 Abnorm Lymph % (Manual) 0 % 10/03/22 05:25 Nucleated RBC % 0.0 /100WBC 10/07/22 08:35 Neutrophils # (Manual) 12.1 10^3/uL (1.5-6.6) H 10/03/22 05:25 Lymphocytes # (Manual) 2.0 10^3/uL (1.5-3.5) 10/03/22 05:25 Monocytes # (Manual) 2.3 10^3/uL (0.0-1.0) H 10/03/22 05:25 Eosinophils # (Manual) 0.0 10^3/uL (0-0.7) 10/03/22 05:25 Basophils # (Manual) 0.0 10^3/uL (0-0.1) 10/03/22 05:25 Differential Comment MANUAL DIFFERENTIAL 10/03/22 05:25 WBC Morphology NORMAL APPEARANCE (NORMAL) 10/03/22 05:25 Platelet Estimate NORMAL (130-450,000) (NORMAL) 10/03/22 05:25 Platelet Morphology NORMAL APPEARANCE (NORMAL) 10/03/22 05:25 RBC Morph Micro Appear NORMAL APPEARANCE (NORMAL) 10/03/22 05:25 Bld Gas Analysis Time 1745 10/05/22 17:30 Sample Site RIGHT RADIAL 10/05/22 17:30 ABG pH 7.49 (7.35-7.45) H 10/05/22 17:30 ABG pCO2 33 mmHg (34-45) L 10/05/22 17:30 ABG pO2 67 mmHg (80-100) L 10/05/22 17:30 ABG HCO3 24.8 mmol/L (22.0-26.0) 10/05/22 17:30 ABG Total CO2 25.8 MMOL/L (21.0-29.0) 10/05/22 17:30 ABG O2 Saturation 94 % (94-98) 10/05/22 17:30 ABG Base Excess 2.1 mmol/L (-2.0-3.0) 10/05/22 17:30 Tonio Test POSITIVE 10/05/22 17:30 VBG pH 7.490 (7.31-7.41) H 10/06/22 04:46 Ionized Calcium 1.08 mmol/L (1.15-1.33) L 10/06/22 04:46 O2 Delivery Device OXYMIZER 10/05/22 17:30 O2 Liters/Min 10.00 LPM 10/05/22 17:30 Sodium 144 mmol/L (135-145) 10/07/22 08:35 Potassium 4.4 mmol/L (3.5-5.0) 10/07/22 08:35 Chloride 108 mmol/L (101-111) 10/07/22 08:35 Carbon Dioxide 26 mmol/L (21-32) 10/07/22 08:35 Anion Gap 10.0 (6-13) 10/07/22 08:35 BUN 44 mg/dL (6-20) H 10/07/22 08:35 Creatinine 1.2 mg/dL (0.6-1.2) 10/07/22 08:35 Estimated GFR (MDRD) 58 (>89) L 10/07/22 08:35 Glucose 172 mg/dL (70-100) H 10/07/22 08:35 POC Whole Bld Glucose 158 mg/dL (70 - 100) H 10/02/22 13:55 Lactic Acid 0.9 mmol/L (0.5-2.2) 09/30/22 21:00 Calcium 8.0 mg/dL (8.5-10.3) L 10/07/22 08:35 Ionized Calcium YES 10/05/22 05:35 Phosphorus 4.0 mg/dL (2.5-4.6) 10/06/22 04:46 Magnesium 2.7 mg/dL (1.7-2.8) 10/07/22 08:35 Total Bilirubin 0.9 mg/dL (0.2-1.0) 10/07/22 08:35 AST 86 IU/L (10-42) H 10/07/22 08:35 ALT 97 IU/L (10-60) H 10/07/22 08:35 Alkaline Phosphatase 117 IU/L (42-121) 10/07/22 08:35 Total Protein 6.6 g/dL (6.7-8.2) L 10/07/22 08:35 Albumin 2.8 g/dL (3.2-5.5) L 10/07/22 08:35 Globulin 3.8 g/dL (2.1-4.2) 10/07/22 08:35 Albumin/Globulin Ratio 0.7 (1.0-2.2) L 10/07/22 08:35 Urine Color YELLOW 09/30/22 23:07 Urine Clarity CLEAR (CLEAR) 09/30/22 23:07 Urine pH 5.5 PH (5.0-7.5) 09/30/22 23:07 Ur Specific [place] 1.020 (1.002-1.030) 09/30/22 23:07 Urine Protein 30 mg/dL (NEGATIVE) H 09/30/22 23:07 Urine Glucose (UA) NEGATIVE mg/dL (NEGATIVE) 09/30/22 23:07 Urine Ketones TRACE mg/dL (NEGATIVE) 09/30/22 23:07 Urine Occult Blood NEGATIVE (NEGATIVE) 09/30/22 23:07 Urine Nitrite NEGATIVE (NEGATIVE) 09/30/22 23:07 Urine Bilirubin NEGATIVE (NEGATIVE) 09/30/22 23:07 Urine Urobilinogen 1 (NORMAL) E.U./dL (NORMAL) 09/30/22 23:07 Ur Leukocyte Esterase NEGATIVE (NEGATIVE) 09/30/22 23:07 Urine RBC 0-5 /HPF (0-5) 09/30/22 23:07 Urine WBC 0-3 /HPF (0-3) 09/30/22 23:07 Ur Squamous Epith Cells RARE Squamous (<= Few) 09/30/22 23:07 Urine Bacteria Rare /HPF (None Seen) 09/30/22 23:07 Urine Mucus Few Strands 09/30/22 23:07 Urine Culture Comments NOT INDICATED 09/30/22 23:07 Nasal Adenovirus (PCR) NOT DETECTED 09/30/22 21:00 Nasal B. parapertussis DNA (PCR) NOT DETECTED 09/30/22 21:00 Nasal Coronavir 229E PCR NOT DETECTED 09/30/22 21:00 Nasal Coronavir HKU1 PCR NOT DETECTED 09/30/22 21:00 Nasal Coronavir NL63 PCR NOT DETECTED 09/30/22 21:00 Nasal Coronavir OC43 PCR NOT DETECTED 09/30/22 21:00 Nasal Enterovir/Rhinovir PCR NOT DETECTED 09/30/22 21:00 Nasal Influenza B PCR NOT DETECTED 09/30/22 21:00 Nasal Influenza A PCR NOT DETECTED 09/30/22 21:00 Nasal Parainfluen 1 PCR NOT DETECTED 09/30/22 21:00 Nasal Parainfluen 2 PCR NOT DETECTED 09/30/22 21:00 Nasal Parainfluen 3 PCR NOT DETECTED 09/30/22 21:00 Nasal Parainfluen 4 PCR NOT DETECTED 09/30/22 21:00 Nasal RSV (PCR) NOT DETECTED 09/30/22 21:00 Nasal Screen MRSA (PCR) NEGATIVE (NEGATIVE) 10/05/22 19:45 Nasal B.pertussis DNA PCR NOT DETECTED 09/30/22 21:00 Nasal C.pneumoniae (PCR) NOT DETECTED 09/30/22 21:00 Sol Human Metapneumo PCR NOT DETECTED 09/30/22 21:00 Nasal M.pneumoniae (PCR) NOT DETECTED 09/30/22 21:00 Nasal SARS-CoV-2 (PCR) NOT DETECTED 09/30/22 21:00 Sepsis Event Note (H) - Evaluation Current Stage of Sepsis: Sepsis Possible source of Sepsis: positive: Pulmonary - Sepsis Criteria Sepsis Criteria: Recorded Heart Rate greater than 90 bpm, Recorded Respiratory Rate greater than 20, WBC count greater than 12,000 or less than 4000
[2022-10-09] MEDS ORDERED: ACETAMINOPHEN 650 MG SUPP PR PRN (23:18)
[2022-10-10] MEDS: SODIUM CHLORIDE FLUSH 0.9% 10 ML SYRINGE IVP PRN ×2 (00:16→20:13)
[2022-10-10] MEDS: MORPHINE SOL 10 MG/0.5 ML ORAL SYRINGE PO PRN ×2 (05:31→10:37)
[2022-10-10] MEDS: MORPHINE 2 MG/ML CARPUJECT IVP PRN ×4 (07:54→20:12)
[2022-10-10] MEDS: LORazepam 2 MG/ML VIAL IVP PRN (16:03)
--- NOTE | 2022-10-10 20:07 | PROVIDER PROGRESS NOTE ---
Assessment/Plan - Problem List (1) Acute respiratory failure with hypoxia Assessment/Plan: This was multifactorial; from having underlying pulmonary fibrosis and developing pneumonia then possibly ARDS. He also suffered a stroke this hospitalization, causing delirium. He and the did not want to have the patient transferred to a hospital for higher level of care with specialists. Then the patient did not want to wear BiPAP, so he was put back on heated high flow. He then said he was not comfortable wearing heated high flow with large cannula in his nares. The patient wanted to go on standard nasal cannula for suppl O2 on 10/07. On 10/08, he became mostly sedated from Morphine being used for dyspnea Today he is saturating 65 to 73% on suppl O2 by nasal cannula. He is sedated getting prn Morphine, prn Roxanol and prn Ativan. He was moved out of the ICU to a [facility] bed. Plan: Continue with comfort measures including meds for air hunger, morphine or roxanol, and for pain, etc. The patient is imminently dying since he is no longer getting IV steroids, IV antibiotics, or diuretics, and also no aspirin for the acute CVA. It is very likely that he would in an ambulance during transfer to home, therefore the Hospice referral for care after discharge will be canceled today. Hospice was in formed. The patient will stay here for dying. (2) Comfort measures only status Assessment/Plan: On 10/07 the and patient told RT and the patient's nurse that they did not want him transferred, did not want ongoing aggressive care, and asked to cancel the transfer. He wanted no intubation or vent. support. I met with the patient and several more times on 10/07 after that. I repeated that I recommend him being transferred and having specialists to try to get him through this Pulm fibrosis exacerbation and to have Pulmonary input and Neurology input for his temporal montalvo. When he was confused from stroke and hypoxia, the did not want to proceed with the transfer despite my urging. I offered that the patient, therefore, have comfort measures because of his respiratory distress and air hunger. The and the patient then agreed to focus on comfort care. The transfer to [facility] ICU was cancelled. Plan: Continue comfort care orders, including IV morphine, oral Roxanol, IV Haldol, eyedrops and other meds for comfort. On 10/07, I had discussed with the patient and the where he would best like to with dignity, and he wanted to go home. A Hospice consult for care after discharge was placed. Hospice said on 10/07 that they could take him on as a patient today 10/10 at 1630. Since the patient has been running O2 saturations of 63 to 75% for the last 24 hours, he very likely now has brain damage. He also probably has multi-organ ischemic failure. His is imminent. It is very likely that he would in the ambulance during transfer. The Hospice referral was canceled. He will stay here for dying. I updated the at the bedside today - Current Meds Current Meds: Current Medications Generic Name Dose Route Start Last Admin Trade Name Freq PRN Reason Stop Dose Admin Acetaminophen 650 mg 10/09/22 23:18 10/10/22 00:16 Acetaminophen 650 Mg Supp ND 650 mg Q6HR PRN Administration Pain or Fever > 38C (100.4F) Glycopyrrolate 0.2 mg 10/07/22 14:59 10/08/22 16:25 Glycopyrrolate 1 Mg/5 Ml Vial SUBQ 0.2 mg Q4H PRN Administration Excessive secretions Haloperidol 1 mg 10/07/22 17:18 10/08/22 03:31 Haloperidol 5 Mg/Ml Vial IVP 1 mg Q6H PRN Administration Agitation Lorazepam 1 mg 10/07/22 08:34 10/10/22 16:03 Lorazepam 2 Mg/Ml Vial IVP 1 mg Q4H PRN Administration Agitation Morphine Sulfate 10 mg 10/07/22 14:59 10/10/22 10:37 Morphine Agnes 10 Mg/0.5 Ml Oral Syringe PO 10 mg Q2HR PRN Administration Moderate Pain (Level 4-6) Morphine Sulfate 10 mg 10/07/22 14:59 10/08/22 03:36 Morphine Agnes 10 Mg/0.5 Ml Oral Syringe PO 10 mg Q2HR PRN Administration Dyspnea Morphine Sulfate 3 mg 10/07/22 17:20 10/10/22 16:29 Morphine 2 Mg/Ml Carpuject IVP 3 mg Q1HR PRN Administration Dyspnea Sodium Chloride 10 ml 10/01/22 00:17 10/10/22 00:16 Sodium Chloride Flush 0.9% 10 Ml Syringe IVP 10 ml PRN PRN Administration NEEDED PER PROVIDER ORDERS Sodium Chloride 2 sprays 10/02/22 12:01 10/05/22 12:14 Sodium Chloride 0.65% Nasal [place] SOL 1 spr Q4HR PRN Administration Nasal Congestion - Lab Result Fish Bone Diagrams: 10/07/22 08:35 10/07/22 08:35 Subjective - Subjective Nursing Reports: Other (He was able to open his eyes possibly look at his . Overall he is sedated from getting IV morphine and oral roxanol) Objective Vital Signs: Vital Signs - 24 hr 10/09/22 10/10/22 21:45 00:12 Temperature 36.8 C 37.3 C Heart Rate [ 98 Monitoring electrodes] Oxygen O2 Source Nasal cannula I&O (Last 24 Hrs): Intake and Output Totals x24h 10/08/22 10/09/22 10/10/22 23:59 23:59 23:59 Intake Total 0 Balance 0 General: Other (sedated) HEENT: Other (dry mucosa, breathing with mouth open) Neuro: Other (sedated) Cardiovascular: Other (Tachycardic) Respiratory: Other (He is mildly tachypneic, has supplemental O2 via nasal cannula, is breathing with mouth open) - Results Results: Laboratory Results WBC 19.4 x10^3/uL (4.8-10.8) H 10/07/22 08:35 RBC 4.07 10^6/uL (4.70-6.10) L 10/07/22 08:35 Hgb 12.0 g/dL (14.0-18.0) L 10/07/22 08:35 Hct 35.1 % (42.0-52.0) L 10/07/22 08:35 MCV 86.2 fL (80.0-94.0) 10/07/22 08:35 MCH 29.5 pg (27.0-31.0) 10/07/22 08:35 MCHC 34.2 g/dL (32.0-36.0) 10/07/22 08:35 RDW 14.8 % (12.0-15.0) 10/07/22 08:35 Plt Count 274 10^3/uL (130-450) 10/07/22 08:35 MPV 10.2 fL (7.4-11.4) 10/07/22 08:35 Neut # (Auto) 17.2 10^3/uL (1.5-6.6) H 10/07/22 08:35 Lymph # (Auto) 0.7 10^3/uL (1.5-3.5) L 10/07/22 08:35 [place] # (Auto) 1.3 10^3/uL (0.0-1.0) H 10/07/22 08:35 Eos # (Auto) 0.0 10^3/uL (0.0-0.7) 10/07/22 08:35 Baso # (Auto) 0.0 10^3/uL (0.0-0.1) 10/07/22 08:35 Absolute Nucleated RBC 0.00 x10^3/uL 10/07/22 08:35 Total Counted 100 10/03/22 05:25 Band Neuts % (Manual) 1 % (0-10) 10/03/22 05:25 Abnorm Lymph % (Manual) 0 % 10/03/22 05:25 Nucleated RBC % 0.0 /100WBC 10/07/22 08:35 Neutrophils # (Manual) 12.1 10^3/uL (1.5-6.6) H 10/03/22 05:25 Lymphocytes # (Manual) 2.0 10^3/uL (1.5-3.5) 10/03/22 05:25 Monocytes # (Manual) 2.3 10^3/uL (0.0-1.0) H 10/03/22 05:25 Eosinophils # (Manual) 0.0 10^3/uL (0-0.7) 10/03/22 05:25 Basophils # (Manual) 0.0 10^3/uL (0-0.1) 10/03/22 05:25 Differential Comment MANUAL DIFFERENTIAL 10/03/22 05:25 WBC Morphology NORMAL APPEARANCE (NORMAL) 10/03/22 05:25 Platelet Estimate NORMAL (130-450,000) (NORMAL) 10/03/22 05:25 Platelet Morphology NORMAL APPEARANCE (NORMAL) 10/03/22 05:25 RBC Morph Micro Appear NORMAL APPEARANCE (NORMAL) 10/03/22 05:25 Bld Gas Analysis Time 1745 10/05/22 17:30 Sample Site RIGHT RADIAL 10/05/22 17:30 ABG pH 7.49 (7.35-7.45) H 10/05/22 17:30 ABG pCO2 33 mmHg (34-45) L 10/05/22 17:30 ABG pO2 67 mmHg (80-100) L 10/05/22 17:30 ABG HCO3 24.8 mmol/L (22.0-26.0) 10/05/22 17:30 ABG Total CO2 25.8 MMOL/L (21.0-29.0) 10/05/22 17:30 ABG O2 Saturation 94 % (94-98) 10/05/22 17:30 ABG Base Excess 2.1 mmol/L (-2.0-3.0) 10/05/22 17:30 Tonio Test POSITIVE 10/05/22 17:30 VBG pH 7.490 (7.31-7.41) H 10/06/22 04:46 Ionized Calcium 1.08 mmol/L (1.15-1.33) L 10/06/22 04:46 O2 Delivery Device OXYMIZER 10/05/22 17:30 O2 Liters/Min 10.00 LPM 10/05/22 17:30 Sodium 144 mmol/L (135-145) 10/07/22 08:35 Potassium 4.4 mmol/L (3.5-5.0) 10/07/22 08:35 Chloride 108 mmol/L (101-111) 10/07/22 08:35 Carbon Dioxide 26 mmol/L (21-32) 10/07/22 08:35 Anion Gap 10.0 (6-13) 10/07/22 08:35 BUN 44 mg/dL (6-20) H 10/07/22 08:35 Creatinine 1.2 mg/dL (0.6-1.2) 10/07/22 08:35 Estimated GFR (MDRD) 58 (>89) L 10/07/22 08:35 Glucose 172 mg/dL (70-100) H 10/07/22 08:35 POC Whole Bld Glucose 158 mg/dL (70 - 100) H 10/02/22 13:55 Lactic Acid 0.9 mmol/L (0.5-2.2) 09/30/22 21:00 Calcium 8.0 mg/dL (8.5-10.3) L 10/07/22 08:35 Ionized Calcium YES 10/05/22 05:35 Phosphorus 4.0 mg/dL (2.5-4.6) 10/06/22 04:46 Magnesium 2.7 mg/dL (1.7-2.8) 10/07/22 08:35 Total Bilirubin 0.9 mg/dL (0.2-1.0) 10/07/22 08:35 AST 86 IU/L (10-42) H 10/07/22 08:35 ALT 97 IU/L (10-60) H 10/07/22 08:35 Alkaline Phosphatase 117 IU/L (42-121) 10/07/22 08:35 Total Protein 6.6 g/dL (6.7-8.2) L 10/07/22 08:35 Albumin 2.8 g/dL (3.2-5.5) L 10/07/22 08:35 Globulin 3.8 g/dL (2.1-4.2) 10/07/22 08:35 Albumin/Globulin Ratio 0.7 (1.0-2.2) L 10/07/22 08:35 Urine Color YELLOW 09/30/22 23:07 Urine Clarity CLEAR (CLEAR) 09/30/22 23:07 Urine pH 5.5 PH (5.0-7.5) 09/30/22 23:07 Ur Specific [place] 1.020 (1.002-1.030) 09/30/22 23:07 Urine Protein 30 mg/dL (NEGATIVE) H 09/30/22 23:07 Urine Glucose (UA) NEGATIVE mg/dL (NEGATIVE) 09/30/22 23:07 Urine Ketones TRACE mg/dL (NEGATIVE) 09/30/22 23:07 Urine Occult Blood NEGATIVE (NEGATIVE) 09/30/22 23:07 Urine Nitrite NEGATIVE (NEGATIVE) 09/30/22 23:07 Urine Bilirubin NEGATIVE (NEGATIVE) 09/30/22 23:07 Urine Urobilinogen 1 (NORMAL) E.U./dL (NORMAL) 09/30/22 23:07 Ur Leukocyte Esterase NEGATIVE (NEGATIVE) 09/30/22 23:07 Urine RBC 0-5 /HPF (0-5) 09/30/22 23:07 Urine WBC 0-3 /HPF (0-3) 09/30/22 23:07 Ur Squamous Epith Cells RARE Squamous (<= Few) 09/30/22 23:07 Urine Bacteria Rare /HPF (None Seen) 09/30/22 23:07 Urine Mucus Few Strands 09/30/22 23:07 Urine Culture Comments NOT INDICATED 09/30/22 23:07 Nasal Adenovirus (PCR) NOT DETECTED 09/30/22 21:00 Nasal B. parapertussis DNA (PCR) NOT DETECTED 09/30/22 21:00 Nasal Coronavir 229E PCR NOT DETECTED 09/30/22 21:00 Nasal Coronavir HKU1 PCR NOT DETECTED 09/30/22 21:00 Nasal Coronavir NL63 PCR NOT DETECTED 09/30/22 21:00 Nasal Coronavir OC43 PCR NOT DETECTED 09/30/22 21:00 Nasal Enterovir/Rhinovir PCR NOT DETECTED 09/30/22 21:00 Nasal Influenza B PCR NOT DETECTED 09/30/22 21:00 Nasal Influenza A PCR NOT DETECTED 09/30/22 21:00 Nasal Parainfluen 1 PCR NOT DETECTED 09/30/22 21:00 Nasal Parainfluen 2 PCR NOT DETECTED 09/30/22 21:00 Nasal Parainfluen 3 PCR NOT DETECTED 09/30/22 21:00 Nasal Parainfluen 4 PCR NOT DETECTED 09/30/22 21:00 Nasal RSV (PCR) NOT DETECTED 09/30/22 21:00 Nasal Screen MRSA (PCR) NEGATIVE (NEGATIVE) 10/05/22 19:45 Nasal B.pertussis DNA PCR NOT DETECTED 09/30/22 21:00 Nasal C.pneumoniae (PCR) NOT DETECTED 09/30/22 21:00 Sol Human Metapneumo PCR NOT DETECTED 09/30/22 21:00 Nasal M.pneumoniae (PCR) NOT DETECTED 09/30/22 21:00 Nasal SARS-CoV-2 (PCR) NOT DETECTED 09/30/22 21:00 Sepsis Event Note (H) - Evaluation Current Stage of Sepsis: Sepsis Possible source of Sepsis: positive: Pulmonary - Sepsis Criteria Sepsis Criteria: Recorded Heart Rate greater than 90 bpm, Recorded Respiratory Rate greater than 20, WBC count greater than 12,000 or less than 4000
[2022-10-11] MEDS: MORPHINE 2 MG/ML CARPUJECT IVP PRN ×3 (05:43→11:20)
[2022-10-11] MEDS: SODIUM CHLORIDE FLUSH 0.9% 10 ML SYRINGE IVP PRN (05:44)
[2022-10-11] MEDS: LORazepam 2 MG/ML VIAL IVP PRN (11:31)
--- NOTE | 2022-10-11 11:56 | Discharge Plan ---
Discharge Plan Problem Reviewed?: Yes Disposition: 50 Hospice/Home DC/Xfer Condition: Poor Prescriptions: Morphine Oral Soln [Roxanol] 10 mg PO Q2HR PRN #30 ml PRN Reason: Dyspnea Acetaminophen [Tylenol] 650 mg VA Q6HR PRN #2 supp PRN Reason: Pain Or Fever > 38c (100.4f) LORazepam [Ativan] 1 mg PO Q6H PRN #10 tab PRN Reason: Anxiety/Agitation Carboxymethylcellulose 1% Opht [Refresh 1% Ophth Drops] 1 drops EACHEYE QID PRN #15 ml PRN Reason: Dry Eye Ondansetron Odt [Zofran Odt] 4 mg TL Q8H PRN #15 tab PRN Reason: Nausea / Vomiting Diet: Regular (as tolerated) Activity Restrictions: Activity as Tolerated Shower Restrictions: No Driving Restrictions: Yes (no driving) Assistance Devices: Other (as per hospice bed, chucks, etc) Weight Bearing: as tolerated Health Concerns: You have been living at home with your and have a history of pulmonary fibrosis but have been doing well with that disease in spite of his poor prognosis. Unfortunately you developed a cough, fever, and that made you short of breath. The cough is progressively worse. You finally so short of breath that you were brought to the hospital by ambulance and we found you to have a high heart rate because of the stress of a very low oxygen level and pneumonia in the right lower lung. In spite of antibiotics, fluids for hydration's, you had an unfortunate event of having a stroke on top of all of this. You have decided, and shared this decision with your family, that you did not want further treatment. You wanted to be transition to comfort measures only. Plan of Treatment: You will not be discharged home with comfort medication to focus on relieving your pain, shortness of breath, nausea, fever or anxiety. Our hospice medical doctor has been in to see you and is explained the process. Care Goals: To be as comfortable as possible in your own home before you pass away Assessment: Patient is described as alert, oriented, able to make his own decision Follow-Up Care: Hospice No Smoking: If you smoke, Please STOP! Call for help. Follow-up with: Alex Rosado MD [Primary Care Provider] -
--- NOTE | 2022-10-11 12:16 | DISCHARGE SUMMARY ---
Discharge Summary Admit Date: 10/01/22 Discharge Date: 10/11/22 Discharging Provider: Erika Kimbrough MD Primary Care Provider: Alex Rosado MD/Scooby Pires MD Code Status: Do Not Attempt Resuscitation Condition at Discharge: Poor Discharge Disposition: 50 Hospice/Home DC/Xfer - DIAGNOSES Discharge Diagnoses with Status of Each Condition: 1. Acute respiratory failure with hypoxia 2. Interstitial pulmonary fibrosis 3. Community-acquired pneumonia 4. Sepsis 5. Acute encephalopathy 6. Acute embolic stroke - HPI History of Present Illness: Patient is 81-year-old male with past medical significant for pulmonary fibrosis presenting to the emergency department with 5-day history cough, fever, s hortness of breath. Accompanied by who is present at bedside. Reports initially started with fever 101.2 at home 5 days ago. Reports a history of chronic cough that has been becoming progressively worse for the last 5 days. He does state that he followed with pulmonology prior to the onset of the COVID- [address] [facility] however has not followed up with a can conveyor feeder in some time. Denies any history COPD, regular use of breathing treatments, or baseline oxygen demand. Reports had some mild chest pain yesterday but denies any chest pain at this time. Otherwise denies for any nausea, vomiting, abdominal pain, diarrhea, constipation, new rash, new weakness/numbness/tingling in any extremity. 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 He did look comfortable - Past Medical History MRSA Hx?: No - Past Surgical History HEENT: reports: Tonsil/Adenoidectomy - HOSPITAL COURSE Hospital Course: Acute respiratory failure with hypoxia He was initially treated for his respiratory failure and hypoxia from pneumonia and started on antibiotics. He developed diarrhea and continued to have symptoms progressive and the diagnosis of sepsis. Pneumonia was worse. He became encephalopathic and was found to have an acute embolic stroke. The respiratory failure with hypoxia was multifactorial; from having underlying pulmonary fibrosis and developing pneumonia then possibly ARDS. He also suffered a stroke this hospitalization, causing delirium. He and the did not want to have the patient transferred to a hospital for higher level of care with specialists. Then the patient did not want to wear BiPAP, so he was put back on heated high flow. He then said he was not comfortable wearing heated high flow with large cannula in his nares. The patient wanted to go on standard nasal cannula for suppl O2 on 10/07. On 10/08, he became mostly sedated from Morphine being used for dyspnea He is sedated getting prn Morphine, prn Roxanol and prn Ativan. He was moved out of the ICU to a [facility] bed. We continued with comfort measures including meds for air hunger, morphine or roxanol, and for pain, etc. The patient was felt to be imminently dying since he is no longer getting IV steroids, IV antibiotics, or diuretics, and also no aspirin for the acute CVA. Over the weekend, family began communicating with nursing staff. Asking that the patient please be transferred to home with hospice status. They really did not want him to be here. As such arrangements were made for him to go home. He was seen by hospice physician before discharge. The patient was sedated with morphine and Ativan before transfer on ambulance. Medications were called into would be [facility] pharmacy for pickup. Comfort measures only status On 10/07 the and patient told RT and the patient's nurse that they did not want him transferred, did not want ongoing aggressive care, and asked to cancel the transfer. He wanted no intubation or vent. support. Hospitalist with the patient and several more times on 10/07 after that. Hospitalist recommend him being transferred and having specialists to try to get him through this Pulm fibrosis exacerbation and to have Pulmonary input and Neurology input for his temporal montalvo. When he was confused from stroke and hypoxia, the did not want to proceed with the transfer despite urging. Hospitalist then offered that the patient, therefore, have comfort measures because of his respiratory distress and air hunger. The and the patient then agreed to focus on comfort care. The transfer to [facility] ICU was cancelled. On 10/07, hospitalist discussed with the patient and the where he would best like to with dignity, and he wanted to go home. A Hospice consult for care after discharge was placed. Hospice said on 10/07 that they could take him on as a patient today 10/10 at 1630. Since the patient has been running O2 saturations of 63 to 75% for the last 24 hours, he very likely had brain damage. He also probably has multi-organ ischemic failure. His is imminent. Hospitalist felt that it was likely that he would in the ambulance during transfer. The Hospice referral was canceled. However, on the day of discharge, really wanted him home. Hospice was called and patient was seen. He was discharged to hospice. Greater than 30 minutes was spent coordinating discharge. Long discussion with nursing, family, and director of hospice at discharge. Negotiating medications, where they begin to be called into. - ALLERGIES Allergies/Adverse Reactions: Allergies Allergy/AdvReac Type Severity Reaction Status Date / Time No Known Drug Allergies Allergy Verified 09/30/22 20:51 - MEDICATIONS Home Medications: Ambulatory Orders Medication Instructions Recorded Confirmed Acetaminophen [Tylenol] 640 mg PO Q4H PRN ea 10/11/22 Acetaminophen [Tylenol] 650 mg VA Q6HR PRN #2 supp 10/11/22 Carboxymethylcellulose 1% Opht 1 drops EACHEYE QID PRN #15 ml 10/11/22 [Refresh 1% Ophth Drops] LORazepam [Ativan] 1 mg PO Q6H PRN #10 tab 10/11/22 Morphine Oral Soln [Roxanol] 10 mg PO Q2HR PRN #30 ml 10/11/22 Ondansetron Odt [Zofran Odt] 4 mg TL Q8H PRN #15 tab 10/11/22 Sodium Chloride 0.65% [[place]] 2 sprays SOL Q4HR PRN each 10/11/22 - PHYSICAL EXAM AT DISCHARGE General Appearance: positive: Moderate distress (respiratory hunger w open mouth, use of acessory muscles) Eyes Bilateral: positive: EOMI ENT: positive: Dry mucous membranes Neck: positive: No JVD Respiratory: positive: Rales, Rhonchi Cardiovascular: positive: Regular rate & rhythm, Tachycardia Abdomen: positive: No distention, Other (still producing urine). negative: Guarding, Rebound Skin: positive: Warm, Dry Extremities: positive: Pedal edema Neurologic/Psychiatric: positive: CN's nml (2-12), Motor nml, Disoriented to person, Disoriented to place, Disoriented to time - LABS Result Diagrams: 10/07/22 08:35 10/07/22 08:35 - SEPSIS Current Stage of Sepsis: Resolved Possible source of Sepsis: Pulmonary Sepsis Criteria: Recorded Heart Rate greater than 90 bpm, Recorded Respiratory Rate greater than 20, WBC count greater than 12,000 or less than 4000 - TIME SPENT Time Spent in Discharge (Minutes): 40
[2022-10-11] MEDS ORDERED: MORPHINE SOL 10 MG/0.5 ML ORAL SYRINGE PO ONE (13:15)
[2022-10-11] MEDS ORDERED: LORazepam 0.5 MG TABLET SL ONE (13:15)
== END 2022-10-11 14:00 | disposition hospice, home (50) | DRG 193 ==
LOC: ED 20:38 → MS2 10-01 00:17 → ICU 10-05 18:06
PROVIDERS: ADMIT Internal Medicine; ATTEND Specialist
DX: J18.9 Pneumonia, unspecified organism (principal); J96.90 Respiratory failure, unspecified, unspecified whether with hypoxia or hypercapnia; J84.10 Pulmonary fibrosis, unspecified; J90 Pleural effusion, not elsewhere classified; Z20.822 Contact with and (suspected) exposure to COVID-19; A41.9 Sepsis, unspecified organism; J96.01 Acute respiratory failure with hypoxia; I63.40 Cerebral infarction due to embolism of unspecified cerebral artery; G93.40 Encephalopathy, unspecified; R47.89 Other speech disturbances; J84.112 Idiopathic pulmonary fibrosis; Z51.5 Encounter for palliative care; R19.7 Diarrhea, unspecified; Z66 Do not resuscitate
CPT/HCPCS: 36415; 36600; 70450; 70460; 70551; 71045; 80048; 80053; 81001; 82330; 82803; 83605; 83735; 84100; 84132; 85025; 87040; 87070; 87150; 87205; 87633; 93005; 93306; 93308; 93880; 94660; 96365; 96367; 97162; 99285; A9270; J0592; J1650; J2060; J7512; Q9967; 82310; 87086

== ENCOUNTER 2022-10-11 14:00 | Outpatient (CLI) | payer MEDICARE, OTHER | END 2022-10-11 23:59 | disposition home or self-care (01) | LOC: EMS 14:00 | PROVIDERS: ATTEND Specialist | DX: Z51.5 Encounter for palliative care (principal); Z74.01 Bed confinement status; J18.9 Pneumonia, unspecified organism; A41.9 Sepsis, unspecified organism; I63.9 Cerebral infarction, unspecified | CPT/HCPCS: A0425; A0428 ==